=== PATIENT | male | born 1945 | race Two or more races ===

== ENCOUNTER 2024-05-13 08:27 | Inpatient (IN) | payer MEDICARE ==
[2024-05-13] VITALS (7 sets, daily range): PULSE 71–108; RESP 15–24; O2SAT 96–99
[~2024-05-13] VITALS: Ht 172.7 cm; Wt 100.7 kg
[2024-05-13 08:52] LABS: HEMATOCRIT. 45.6 % (42.0-52.0); HEMOGLOBIN. 14.5 g/dL (14.0-18.0); MEAN CORPUSCULAR HEMOGLOBIN 28.7 pg (28.0-32.0); MEAN CORPUSCULAR HGB CONC 31.7 g/dL (31.0-37.0); MEAN CORPUSCULAR VOLUME 90.5 fL (80.0-94.0); MEAN PLATELET VOLUME 7.4 fl (7.4-10.4); PLATELET 274 x1000/uL (130-400); RED BLOOD CELL COUNT 5.04 mill/uL (4.7-6.1); WHITE BLOOD COUNT 13.1 x1000/uL (4.5-11.0)
[2024-05-13 08:56] LABS: DIFFERENTIAL COMMENT 1
[2024-05-13] MEDS: ETOMIDATE 2MG/ML 10ML VIAL IV ONE (09:04)
[2024-05-13] MEDS: SUCCINYLCHOLINE CHLORIDE 200MG/10ML IV ONE (09:04)
[2024-05-13 09:06] LABS: CALCIUM 9.2 mg/dL (8.7-10.4)
[2024-05-13 09:11] LABS: CREATININE 1.3 mg/dL (0.6-1.3)
[2024-05-13] MEDS ORDERED: ACETAMINOPHEN 650MG/20.3ML UDC NG PRN (09:15)
[2024-05-13] MEDS ORDERED: ACETAMINOPHEN 650MG SUPP PR PRN (09:15)
[2024-05-13] MEDS: PROPOFOL 10MG/ML 100ML 100 ML IV ONE (09:17)
[2024-05-13 09:22] LABS: CLARITY URINE CLOUDY (CLEAR); COLOR URINE YELLOW (YELLOW); GLUCOSE URINE 1+ (NEGATIVE); KETONES URINE NEGATIVE (NEGATIVE); LEUKOCYTE ESTERASE URINE NEGATIVE (NEGATIVE); NITRITE URINE NEGATIVE (NEGATIVE); OCCULT BLOOD URINE 2+ (NEGATIVE); PH URINE 5.5 (4.5-8.0); PROTEIN URINE 3+ (NEGATIVE); SPECIFIC GRAVITY URINE 1.013 (1.005-1.030); UROBILINOGEN URINE 0.2 E.U./dL (0.2-1.0)
[2024-05-13 09:41] LABS: BACTERIA URINE TRACE; RBC URINE 15-25 /hpf (0-2); SQUAMOUS EPITHELIAL CELL URINE RARE /lpf (RARE/1+)
[2024-05-13 09:42] LABS: COARSE GRANULAR CASTS URINE 0-5 /lpf; YEAST URINE NONE SEEN
[2024-05-13 09:45] LABS: CHLORIDE 109 mEq/L (98-107); POTASSIUM 4.3 mEq/L (3.5-5.1); SODIUM 140 mEq/L (136-145)
[2024-05-13 09:46] LABS: CARBON DIOXIDE 18 mEq/L (21-32)
[2024-05-13 09:47] LABS: CALCIUM 8.7 mg/dL (8.7-10.4)
[2024-05-13] MEDS: SODIUM CHLORIDE 0.9% (SEPSIS BOLUS) IV ONE (09:55)
[2024-05-13 09:59] LABS: GLUCOSE 245 mg/dL (70-105); PHOSPHORUS 5.4 mg/dL (2.5-4.9); TROPONIN I HIGH SENSITIVITY 44 ng/L (3.0-53); UREA NITROGEN BLOOD 17 mg/dL (9-23)
[2024-05-13] MEDS: NOREPINEPHRINE 8MG/250ML PMX 250 ML IV STA ×2 (10:06→21:40)
[2024-05-13] MEDS: ATROPINE SULFATE 1MG/10ML SYR IV ONE (10:07)
[2024-05-13] MEDS ORDERED: MIDAZOLAM HCL 100 MG in DEXT 5% WATER 80 ML IV ONE (10:45)
[2024-05-13] MEDS ORDERED: PIPERACILLIN/TAZOBACTAM 3.375 G in DEXTROSE 5% WATER 50 ML IV SCH (11:15)
[2024-05-13] MEDS ORDERED: MAGNESIUM/ALUMINUM HYDROXIDE/SIMETHICONE 30ML UDC PO PRN (11:15)
[2024-05-13] MEDS ORDERED: DOCUSATE SODIUM 100MG CAPSULE PO PRN (11:15)
[2024-05-13] MEDS ORDERED: GUAIFENESIN 200MG/10ML SUGAR FREE UDC PO PRN (11:15)
[2024-05-13 11:18] LABS: BG BASE EXCESS -11.2 mmol/L (-2.0-3.0); BG CARBOXYHEMOGLOBIN 0.9 % (0.5-1.5); BG DEOXYHEMOGLOBIN 1.1 % (0.0-5.0); BG FRACTION INSPIRED OXYGEN 100; BG HCO3 ACT 15.8 mmol/L (21.0-28.0); BG METHEMOGLOBIN 0.3 % (0.5-1.5); BG OXYGEN SATURATION 98.9 % (94.0-98.0); BG OXYHEMOGLOBIN 97.7 % (94.0-98.0); BG PCO2 39.4 mmHg (35.0-48.0); BG PH 7.222 (7.350-7.450); BG PO2 189.7 mmHg (83.0-108.0); BG SAMPLE SITE RIGHT RADIAL; BG TOTAL HEMOGLOBIN 14.9 g/dL (13.5-17.5); BG VENT MODE VENT - AC
[2024-05-13] MEDS: MIDAZOLAM 100MG/100ML PREMIX IV PRN (11:18)
[2024-05-13] MEDS ORDERED: DEXTROSE 50% WATER 50ML SYRINGE IV PRN (11:45)
[2024-05-13 11:51] LABS: BETA HYDROXYBUTYRATE 0.2 mMol/L (0.0-0.3); LACTIC ACID 3.3 mmol/L (0.4-2.0)
[2024-05-13] MEDS: SODIUM BICARBONATE 8.4% 50MEQ/50ML SYR IV NR ×2 (11:56→14:00)
[2024-05-13] MEDS: VANCOMYCIN 1.5GM/250ML IV NR (12:00)
[2024-05-13] MEDS: IPRATROPIUM/ALBUTEROL 0.5-3(2.5)MG/3ML NEB HHN SCH (12:00)
[2024-05-13] MEDS: DEXT 5%/0.9% NACL 1,000 ML IV SCH (12:16)
[2024-05-13] MEDS: PANTOPRAZOLE SODIUM 40 MG/VIAL IV SCH (12:16)
[2024-05-13 12:22] LABS: *AMPHETAMINES SCREEN URINE NEGATIVE (NEGATIVE); *BARBITURATES SCREEN URINE NEGATIVE (NEGATIVE); *BENZODIAZEPINES SCREEN URINE NEGATIVE (NEGATIVE); *COCAINE SCREEN URINE NEGATIVE (NEGATIVE); CANNABINOID URINE SCREEN NEGATIVE (NEGATIVE); ECSTASY MDMA SCREEN URINE NEGATIVE (NEGATIVE); METHADONE URINE SCREEN NEGATIVE (NEGATIVE); OPIATES URINE SCREEN NEGATIVE (NEGATIVE); PHENCYCLIDINE URINE SCREEN NEGATIVE (NEGATIVE)
[2024-05-13] MEDS: PROPOFOL 10MG/ML 100ML 100 ML IV SCH ×2 (12:22→12:44)
[2024-05-13 12:29] LABS: HEMATOCRIT. 44.7 % (42.0-52.0); HEMOGLOBIN. 14.7 g/dL (14.0-18.0); MEAN CORPUSCULAR HEMOGLOBIN 29.4 pg (28.0-32.0); MEAN CORPUSCULAR HGB CONC 32.9 g/dL (31.0-37.0); MEAN CORPUSCULAR VOLUME 89.2 fL (80.0-94.0); MEAN PLATELET VOLUME 7.1 fl (7.4-10.4); PLATELET 288 x1000/uL (130-400); RED BLOOD CELL COUNT 5.01 mill/uL (4.7-6.1); RED CELL DISTRIBUTION WIDTH 13.8 % (11.6-14.6); WHITE BLOOD COUNT 19.7 x1000/uL (4.5-11.0)
[2024-05-13 12:31] LABS: DIFFERENTIAL COMMENT 1
[2024-05-13 12:42] LABS: CALCIUM 8.9 mg/dL (8.7-10.4); CARBON DIOXIDE 23 mEq/L (21-32); CHLORIDE 108 mEq/L (98-107)
[2024-05-13 12:43] LABS: SODIUM 139 mEq/L (136-145)
[2024-05-13 12:47] LABS: AMMONIA < 17 uMol/L (<32); CREATININE 1.2 mg/dL (0.6-1.3); GLUCOSE 183 mg/dL (70-105)
[2024-05-13 12:48] LABS: LDL CHOLESTEROL 82 mg/dL (5-100); TRIGLYCERIDE 288 mg/dL (0-150); UREA NITROGEN BLOOD 17 mg/dL (9-23)
[2024-05-13] MEDS: ENOXAPARIN 30MG/0.3ML SYR SUBCUT SCH (12:48)
[2024-05-13 12:49] LABS: ALANINE AMINOTRANSFERASE 118 IU/L (10-49); ALBUMIN 4.1 g/dL (3.2-4.8); ASPARTATE AMINOTRANSFERASE 128 IU/L (<34); BILIRUBIN DIRECT 0.2 mg/dL (<=3.0); CHOLESTEROL 163 mg/dL (<200); HDL CHOLESTEROL 42 mg/dL (>55)
[2024-05-13 12:50] LABS: BILIRUBIN TOTAL 0.6 mg/dL (0.1-1.0); PROTEIN TOTAL 6.6 g/dL (6.0-8.3)
[2024-05-13 12:52] LABS: T4 FREE 1.19 ng/dL (0.89-1.76)
[2024-05-13 12:59] LABS: POTASSIUM 6.3 mEq/L (3.5-5.1)
[2024-05-13] MEDS: BLOOD SUGAR DIAGNOSTIC STRIP TEST SCH (13:10)
[2024-05-13] MEDS: ASPIRIN 81MG EC TABLET PO SCH (13:15)
[2024-05-13 13:28] LABS: PARTIAL THROMBOPLASTIN TIME 26.1 sec (23.4-31.0)
[2024-05-13 13:42] LABS: OSMOLALITY URINE 459 mOsm/kg (500-850)
[2024-05-13] MEDS: CALCIUM CHLORIDE 1GM/10ML SYR IV NR (13:46)
[2024-05-13] MEDS: INSULIN REGULAR (HUMULIN R) 1000UNITS/10ML VIAL IV NR (13:59)
[2024-05-13] MEDS: DEXTROSE 50% WATER 50ML SYRINGE IV NR (14:00)
[2024-05-13] MEDS: INSULIN LISPRO 100 UNITS/ML SUBCUT SCH (14:01)
[2024-05-13] MEDS: SODIUM POLYSTYRENE SULFONATE 15 G/60 ML BOT PO NR (14:03)
[2024-05-13] MEDS: ALBUTEROL (0.083%) 2.5MG/3ML NEB HHN NR (14:04)
[2024-05-13] MEDS: PIPERACILLIN/TAZO 3.375G/50ML IV SCH (14:22)
[2024-05-13 15:03] LABS: PLATELET ESTIMATE NORMAL
[2024-05-13 15:28] LABS: PLATELET ESTIMATE NORMAL
[2024-05-13] MEDS ORDERED: SODIUM CHLORIDE 0.9% (SEPSIS BOLUS) IV ONE (15:45)
[2024-05-13 15:47] LABS: CREATININE 1.2 mg/dL (0.6-1.3)
[2024-05-13 17:01] LABS: CHLORIDE 110 mEq/L (98-107); POTASSIUM 4.3 mEq/L (3.5-5.1); SODIUM 142 mEq/L (136-145)
[2024-05-13 17:02] LABS: CARBON DIOXIDE 23 mEq/L (21-32)
[2024-05-13 17:03] LABS: CALCIUM 9.5 mg/dL (8.7-10.4)
[2024-05-13 17:07] LABS: GLUCOSE 182 mg/dL (70-105); UREA NITROGEN BLOOD 16 mg/dL (9-23)
[2024-05-13 17:09] LABS: CREATINE KINASE 712 IU/L (46-171)
[2024-05-13 17:11] LABS: TROPONIN I HIGH SENSITIVITY 4273 ng/L (3.0-53)
[2024-05-13 17:21] LABS: BG BASE EXCESS -3.3 mmol/L (-2.0-3.0); BG CARBOXYHEMOGLOBIN 1.2 % (0.5-1.5); BG DEOXYHEMOGLOBIN 1.3 % (0.0-5.0); BG FRACTION INSPIRED OXYGEN 100; BG HCO3 ACT 21.7 mmol/L (21.0-28.0); BG METHEMOGLOBIN 0.3 % (0.5-1.5); BG OXYGEN SATURATION 98.7 % (94.0-98.0); BG OXYHEMOGLOBIN 97.2 % (94.0-98.0); BG PCO2 38.9 mmHg (35.0-48.0); BG PH 7.365 (7.350-7.450); BG PO2 149.2 mmHg (83.0-108.0); BG SAMPLE SITE RIGHT RADIAL; BG TOTAL HEMOGLOBIN 13.8 g/dL (13.5-17.5); BG VENT MODE VENT - AC
[2024-05-13] MEDS ORDERED: HEPARIN 100 UNITS/1 ML VIAL IVF PRN (17:45)
[2024-05-13] MEDS: HEPARIN 60 UNITS/KG BOLUS IV SCH (18:34)
[2024-05-13] MEDS: HEPARIN 25,000 UNITS PREMIX 250 ML IV SCH (18:37)
[2024-05-13] MEDS ORDERED: NOREPINEPHRINE 8MG/250ML PMX 250 ML IV PRN (22:00)
[2024-05-13 23:29] LABS: CREATINE KINASE 609 IU/L (46-171)
[2024-05-14] VITALS (68 sets, daily range): BP systolic 86–156; BP diastolic 45–100; PULSE 65–82; RESP 16–36; TEMP 36.89184–37.55856; O2SAT 90–100
[2024-05-14] MEDS: ACETAMINOPHEN 650MG/20.3ML UDC GT PRN (00:12)
[2024-05-14 00:32] LABS: TROPONIN I HIGH SENSITIVITY 4807 ng/L (3.0-53)
[2024-05-14 00:34] LABS: BG BASE EXCESS -3.8 mmol/L (-2.0-3.0); BG CARBOXYHEMOGLOBIN 0.9 % (0.5-1.5); BG DEOXYHEMOGLOBIN 3.6 % (0.0-5.0); BG FRACTION INSPIRED OXYGEN 70; BG HCO3 ACT 20.2 mmol/L (21.0-28.0); BG METHEMOGLOBIN 0.3 % (0.5-1.5); BG OXYGEN SATURATION 96.4 % (94.0-98.0); BG OXYHEMOGLOBIN 95.2 % (94.0-98.0); BG PCO2 33.9 mmHg (35.0-48.0); BG PH 7.394 (7.350-7.450); BG PO2 86.8 mmHg (83.0-108.0); BG SAMPLE SITE LEFT RADIAL; BG VENT MODE VENT - AC
[2024-05-14] MEDS: VANCOMYCIN 500MG PREMIX 100 ML IV SCH (01:55)
[2024-05-14] MEDS: ATORVASTATIN CALCIUM 40MG TABLET PO SCH (02:23)
[2024-05-14] MEDS ORDERED: HEPARIN BOLUS PRN aPTT 30-44 IV (03:00)
[2024-05-14] MEDS ORDERED: VANCOMYCIN 1GM PMX (XELLIA) 200 ML IV SCH (06:00)
[2024-05-14 06:29] LABS: PROTHROMBIN TIME 11.6 sec (9.6-11.0)
[2024-05-14 10:29] LABS: HEMATOCRIT. 40.6 % (42.0-52.0); HEMOGLOBIN. 13.1 g/dL (14.0-18.0); MEAN CORPUSCULAR HEMOGLOBIN 28.8 pg (28.0-32.0); MEAN CORPUSCULAR HGB CONC 32.2 g/dL (31.0-37.0); MEAN CORPUSCULAR VOLUME 89.6 fL (80.0-94.0); MEAN PLATELET VOLUME 7.5 fl (7.4-10.4); PLATELET 221 x1000/uL (130-400); RED BLOOD CELL COUNT 4.53 mill/uL (4.7-6.1); WHITE BLOOD COUNT 15.1 x1000/uL (4.5-11.0)
[2024-05-14 10:34] LABS: DIFFERENTIAL COMMENT 1
[2024-05-14 10:54] LABS: CHLORIDE 111 mEq/L (98-107); POTASSIUM 3.8 mEq/L (3.5-5.1); SODIUM 142 mEq/L (136-145)
[2024-05-14 10:55] LABS: CALCIUM 8.6 mg/dL (8.7-10.4); CARBON DIOXIDE 21 mEq/L (21-32)
[2024-05-14 11:00] LABS: CREATININE 0.9 mg/dL (0.6-1.3); GLUCOSE 198 mg/dL (70-105); UREA NITROGEN BLOOD 8 mg/dL (9-23)
[2024-05-14 11:02] LABS: ALANINE AMINOTRANSFERASE 75 IU/L (10-49); ALBUMIN 3.6 g/dL (3.2-4.8); ASPARTATE AMINOTRANSFERASE 66 IU/L (<34); BILIRUBIN TOTAL 0.4 mg/dL (0.1-1.0)
[2024-05-14 11:03] LABS: PROTEIN TOTAL 5.8 g/dL (6.0-8.3)
[2024-05-14 14:14] LABS: PLATELET ESTIMATE NORMAL
[2024-05-14] MEDS: PROPOFOL 10MG/ML 100ML 100 ML IV PRN (14:21)
[2024-05-14] MEDS: VANCOMYCIN 1.25GM PMX (XELLIA) 250 ML IV SCH (17:49)
[2024-05-14] MEDS: HEPARIN BOLUS PRN aPTT <30 IV (17:49)
[2024-05-14] MEDS: MIDAZOLAM 100MG/100ML PREMIX IV PRN (23:35)
[2024-05-15] VITALS (90 sets, daily range): BP systolic 98–150; BP diastolic 45–95; PULSE 70–88; RESP 12–37; TEMP 37.16964–38.6142; O2SAT 96–100
[2024-05-15] MEDS: ACETAMINOPHEN 325MG TABLET PO PRN (02:54)
[2024-05-15 06:00] LABS: BASOPHILS % 0.2 % (0.0-2.0); EOSINOPHILS % 0.1 % (0.0-5.0); HEMATOCRIT. 34.4 % (42.0-52.0); HEMOGLOBIN. 11.4 g/dL (14.0-18.0); LYMPHOCYTES % 8.8 % (20.0-50.0); MEAN CORPUSCULAR HEMOGLOBIN 29.8 pg (28.0-32.0); MEAN CORPUSCULAR HGB CONC 33.2 g/dL (31.0-37.0); MEAN CORPUSCULAR VOLUME 89.7 fL (80.0-94.0); MEAN PLATELET VOLUME 7.7 fl (7.4-10.4); MONOCYTES % 10.9 % (2.0-8.0); PLATELET 180 x1000/uL (130-400); RED BLOOD CELL COUNT 3.84 mill/uL (4.7-6.1); RED CELL DISTRIBUTION WIDTH 14.2 % (11.6-14.6); WHITE BLOOD COUNT 12.3 x1000/uL (4.5-11.0)
[2024-05-15 06:10] LABS: CARBON DIOXIDE 24 mEq/L (21-32); CHLORIDE 112 mEq/L (98-107); POTASSIUM 3.8 mEq/L (3.5-5.1); SODIUM 143 mEq/L (136-145)
[2024-05-15 06:11] LABS: CALCIUM 8.4 mg/dL (8.7-10.4)
[2024-05-15 06:15] LABS: CREATININE 0.9 mg/dL (0.6-1.3); GLUCOSE 158 mg/dL (70-105); TRIGLYCERIDE 188 mg/dL (0-150)
[2024-05-15 06:16] LABS: UREA NITROGEN BLOOD 7 mg/dL (9-23)
[2024-05-15] MEDS ORDERED: VERAPAMIL HCL 2.5 MG/1 ML 2ML VIAL IV ONE (08:40)
[2024-05-15] MEDS ORDERED: IODIXANOL 320MG/ML 100 ML BOTTLE IV ONE (08:40)
[2024-05-15] MEDS ORDERED: HEPARIN 1000 UNITS/ML 10ML ONE (08:40)
[2024-05-15] MEDS ORDERED: LIDOCAINE HCL 1% 10 MG/ML 10ML VIAL ONE (08:47)
[2024-05-15] MEDS ORDERED: NOREPINEPHRINE 8MG/250ML PMX 250 ML IV ONE (09:37)
[2024-05-15] MEDS ORDERED: ATROPINE SULFATE 1MG/10ML SYR IV PRN (10:00)
[2024-05-15] MEDS ORDERED: ACETAMINOPHEN 325MG TABLET PO PRN (10:00)
[2024-05-15 12:07] LABS: BG BASE EXCESS -3.5 mmol/L (-2.0-3.0); BG CARBOXYHEMOGLOBIN 0.6 % (0.5-1.5); BG DEOXYHEMOGLOBIN 5.8 % (0.0-5.0); BG FRACTION INSPIRED OXYGEN 100; BG HCO3 ACT 19.9 mmol/L (21.0-28.0); BG METHEMOGLOBIN 0.3 % (0.5-1.5); BG OXYGEN SATURATION 94.1 % (94.0-98.0); BG OXYHEMOGLOBIN 93.3 % (94.0-98.0); BG PH 7.426 (7.350-7.450); BG PO2 66.9 mmHg (83.0-108.0); BG SAMPLE SITE LEFT RADIAL; BG TOTAL HEMOGLOBIN 11.8 g/dL (13.5-17.5); BG VENT MODE VENT - AC
[2024-05-15] MEDS: FUROSEMIDE 40MG/4ML VIAL IVP NR (14:09)
[2024-05-15] MEDS: EPOETIN ALFA 10000UNITS/ML VIAL SUBCUT SCH (15:17)
[2024-05-15] MEDS: VANCOMYCIN 1.25GM PMX (XELLIA) 250 ML IV SCH (15:18)
[2024-05-15 20:21] LABS: BG CARBOXYHEMOGLOBIN 0.6 % (0.5-1.5); BG DEOXYHEMOGLOBIN 2.5 % (0.0-5.0); BG FRACTION INSPIRED OXYGEN 100; BG HCO3 ACT 22.5 mmol/L (21.0-28.0); BG METHEMOGLOBIN 0.3 % (0.5-1.5); BG OXYGEN SATURATION 97.5 % (94.0-98.0); BG OXYHEMOGLOBIN 96.6 % (94.0-98.0); BG PCO2 30.1 mmHg (35.0-48.0); BG PH 7.491 (7.350-7.450); BG PO2 91.4 mmHg (83.0-108.0); BG SAMPLE SITE RIGHT RADIAL; BG TOTAL HEMOGLOBIN 12.9 g/dL (13.5-17.5); BG VENT MODE VENT - AC
[2024-05-15] MEDS ORDERED: BISACODYL 10MG SUPP PR PRN (21:00)
[2024-05-15] MEDS: CHLORHEXIDINE GLUCONATE 4% EXTERNAL USE TOP SCH (21:22)
[2024-05-15] MEDS: ASCORBIC ACID 500 MG TABLET PO SCH (21:32)
[2024-05-15] MEDS: ALLOPURINOL 300 MG TABLET PO SCH (21:32)
[2024-05-15] MEDS: DOCUSATE SODIUM 100MG CAPSULE PO SCH (21:32)
[2024-05-15] MEDS: PROPOFOL 10MG/ML 100ML 100 ML IV PRN (21:34)
[2024-05-15 22:11] LABS: PHOSPHORUS 2.5 mg/dL (2.5-4.9)
[2024-05-15 22:33] LABS: BG BASE EXCESS 0.4 mmol/L (-2.0-3.0); BG CARBOXYHEMOGLOBIN 0.2 % (0.5-1.5); BG DEOXYHEMOGLOBIN 2.1 % (0.0-5.0); BG FRACTION INSPIRED OXYGEN 90; BG HCO3 ACT 23.6 mmol/L (21.0-28.0); BG METHEMOGLOBIN 0.3 % (0.5-1.5); BG OXYGEN SATURATION 97.9 % (94.0-98.0); BG OXYHEMOGLOBIN 97.4 % (94.0-98.0); BG PCO2 33.3 mmHg (35.0-48.0); BG PH 7.468 (7.350-7.450); BG SAMPLE SITE RIGHT RADIAL; BG TOTAL HEMOGLOBIN 12.6 g/dL (13.5-17.5); BG VENT MODE VENT - AC
[2024-05-16] VITALS (82 sets, daily range): BP systolic 95–146; BP diastolic 53–97; PULSE 65–109; RESP 17–44; TEMP 36.83628–37.2252; O2SAT 90–100
[2024-05-16 00:54] LABS: BG CARBOXYHEMOGLOBIN 0.2 % (0.5-1.5); BG DEOXYHEMOGLOBIN 2.2 % (0.0-5.0); BG FRACTION INSPIRED OXYGEN 70; BG METHEMOGLOBIN 0.3 % (0.5-1.5); BG OXYGEN SATURATION 97.8 % (94.0-98.0); BG OXYHEMOGLOBIN 97.3 % (94.0-98.0); BG PCO2 31.7 mmHg (35.0-48.0); BG PO2 104.4 mmHg (83.0-108.0); BG SAMPLE SITE RIGHT RADIAL; BG TOTAL HEMOGLOBIN 12.4 g/dL (13.5-17.5); BG VENT MODE VENT - AC
[2024-05-16] MEDS: MIDAZOLAM 100MG/100ML PMX 100 ML IV PRN (02:49)
[2024-05-16] MEDS: CEFAZOLIN 2GM/100ML 100 ML IV NR (04:22)
[2024-05-16 04:46] LABS: BASOPHILS % 0.4 % (0.0-2.0); CALCIUM 8.4 mg/dL (8.7-10.4); CARBON DIOXIDE 25 mEq/L (21-32); CHLORIDE 109 mEq/L (98-107); EOSINOPHILS % 0.1 % (0.0-5.0); HEMATOCRIT. 35.4 % (42.0-52.0); HEMOGLOBIN. 11.7 g/dL (14.0-18.0); LYMPHOCYTES % 12.2 % (20.0-50.0); MEAN CORPUSCULAR HEMOGLOBIN 29.2 pg (28.0-32.0); MEAN CORPUSCULAR HGB CONC 33.1 g/dL (31.0-37.0); MEAN CORPUSCULAR VOLUME 88.4 fL (80.0-94.0); MEAN PLATELET VOLUME 7.2 fl (7.4-10.4); MONOCYTES % 12.8 % (2.0-8.0); NEUTROPHILS % 74.5 % (40.0-76.0); PLATELET 186 x1000/uL (130-400); POTASSIUM 3.3 mEq/L (3.5-5.1); RED BLOOD CELL COUNT 4.01 mill/uL (4.7-6.1); RED CELL DISTRIBUTION WIDTH 13.7 % (11.6-14.6); SODIUM 141 mEq/L (136-145); WHITE BLOOD COUNT 12.6 x1000/uL (4.5-11.0)
[2024-05-16 04:52] LABS: CREATININE 0.9 mg/dL (0.6-1.3); GLUCOSE 148 mg/dL (70-105); TRIGLYCERIDE 180 mg/dL (0-150); UREA NITROGEN BLOOD 10 mg/dL (9-23)
[2024-05-16] MEDS ORDERED: NICARDIPINE 40MG/200ML PREMIX 200 ML IV PRN (05:00)
[2024-05-16] MEDS ORDERED: WATER IV NR (05:00)
[2024-05-16] MEDS ORDERED: AMINOCAPROIC ACID IV NR (05:00)
[2024-05-16] MEDS ORDERED: DOBUTAMINE 250 MG/250 ML PREMIX IV PRN (05:00)
[2024-05-16] MEDS ORDERED: DEXT 5% IV NR (05:00)
[2024-05-16] MEDS ORDERED: NOREPINEPHRINE 8MG/250ML PMX 250 ML IV PRN (05:00)
[2024-05-16] MEDS ORDERED: PAPAVERINE HCL 180MG in SODIUM CHLORIDE 0.9% 24ML IV NR (05:00)
[2024-05-16] MEDS: CHLORHEXIDINE GLUCONATE 4% EXTERNAL USE TOP SCH (05:09)
[2024-05-16] MEDS: KCL 20MEQ/100ML PREMIX 100 ML IV SCH (05:31)
[2024-05-16 05:36] LABS: PROTHROMBIN TIME 11.1 sec (9.6-11.0)
[2024-05-16 05:38] LABS: PHOSPHORUS 2.8 mg/dL (2.5-4.9)
[2024-05-16] MEDS ORDERED: NITROGLYCERIN 50MG PREMIX 250 ML IV ONE (06:07)
[2024-05-16] MEDS ORDERED: SEVOFLURANE 250 ML LIQUID INH ONE (06:07)
[2024-05-16] MEDS ORDERED: HEPARIN 1000 UNITS/ML 10ML ONE ×2 (06:07→08:36)
[2024-05-16] MEDS ORDERED: ROCURONIUM BROMIDE 10MG/ML VIAL 5ML IV ONE ×2 (06:47→08:10)
[2024-05-16] MEDS ORDERED: POLYMYXIN B SULFATE 500000 UNITS/VIAL ONE (06:48)
[2024-05-16] MEDS ORDERED: SKIN ADHESIVE 0.7 GM EA TOP ONE (06:48)
[2024-05-16] MEDS ORDERED: THROMBIN (BOVINE) 5000 UNITS/VIAL TOP ONE (06:48)
[2024-05-16] MEDS ORDERED: ACETAMINOPHEN 1000MG/100ML 100 ML IV ONE (06:49)
[2024-05-16] MEDS ORDERED: MAGNESIUM 4 G PREMIX 100 ML IV NR ×2 (07:00→08:00)
[2024-05-16] MEDS ORDERED: DEL NIDO CARDIOPLEGIA 1,000 ML (PREMIX) IV NR (07:00)
[2024-05-16] MEDS ORDERED: AMINOCAPROIC ACID 250 MG/ML 20ML VIAL ONE (08:07)
[2024-05-16] MEDS ORDERED: FENTANYL CITRATE/PF 50MCG/ML 2ML VIAL ONE ×2 (08:08)
[2024-05-16] MEDS ORDERED: PROPOFOL 10MG/ML 100ML 100 ML IV ONE (08:29)
[2024-05-16] MEDS ORDERED: CALCIUM CHLORIDE 1GM/10ML SYR IV ONE (09:43)
[2024-05-16] MEDS ORDERED: SODIUM BICARBONATE 8.4% 50MEQ/50ML SYR IV ONE ×2 (09:58→10:28)
[2024-05-16] MEDS ORDERED: PROTAMINE SULFATE 10MG/ML VIAL 25ML IV ONE (10:13)
[2024-05-16] MEDS ORDERED: AMIODARONE HCL 50MG/ML 3ML VIAL IV ONE (10:13)
[2024-05-16] MEDS ORDERED: NEOSTIGMINE METHYLSULFATE 1MG/ML 10 ML VIAL ONE (10:25)
[2024-05-16] MEDS ORDERED: GLYCOPYRROLATE 0.2 MG/ML 2ML VIAL ONE (10:26)
[2024-05-16] MEDS ORDERED: DEXMEDETOMIDINE 400 MCG/100 ML 100 ML IV ONE (10:36)
[2024-05-16] MEDS ORDERED: SODIUM CHLORIDE 0.9% 500 ML IV PRN (11:00)
[2024-05-16] MEDS ORDERED: CALCIUM CHLORIDE 3,000 MG in DEXT 5% WATER 250 ML IV PRN (11:00)
[2024-05-16] MEDS ORDERED: ALBUMIN HUMAN 12.5G/250ML (5%) IV PRN (11:00)
[2024-05-16] MEDS ORDERED: EPINEPHRINE 5 MG in DEXT 5% WATER 245 ML IV PRN (11:00)
[2024-05-16] MEDS ORDERED: CALCIUM CHLORIDE 5,000 MG in DEXT 5% WATER 500 ML IV PRN (11:00)
[2024-05-16] MEDS: ASPIRIN 81MG EC TABLET PO NR (11:00)
[2024-05-16] MEDS ORDERED: DOPAMINE 400MG/250ML PREMIX 250 ML IV PRN (11:00)
[2024-05-16] MEDS ORDERED: ALBUMIN HUMAN 25GM/100ML (25%) IV PRN (11:00)
[2024-05-16 11:53] LABS: BASOPHILS % 0.2 % (0.0-2.0); EOSINOPHILS % 0.1 % (0.0-5.0); HEMATOCRIT. 37.8 % (42.0-52.0); HEMOGLOBIN. 12.1 g/dL (14.0-18.0); LYMPHOCYTES % 8.2 % (20.0-50.0); MEAN CORPUSCULAR HEMOGLOBIN 28.6 pg (28.0-32.0); MEAN CORPUSCULAR HGB CONC 32.1 g/dL (31.0-37.0); MEAN CORPUSCULAR VOLUME 89.1 fL (80.0-94.0); MEAN PLATELET VOLUME 7.1 fl (7.4-10.4); MONOCYTES % 8.8 % (2.0-8.0); NEUTROPHILS % 82.7 % (40.0-76.0); PLATELET 196 x1000/uL (130-400); RED BLOOD CELL COUNT 4.25 mill/uL (4.7-6.1); RED CELL DISTRIBUTION WIDTH 13.8 % (11.6-14.6); WHITE BLOOD COUNT 22.7 x1000/uL (4.5-11.0)
[2024-05-16 11:58] LABS: BG BASE EXCESS -5.5 mmol/L (-2.0-3.0); BG CARBOXYHEMOGLOBIN 1.3 % (0.5-1.5); BG DEOXYHEMOGLOBIN 14.2 % (0.0-5.0); BG FRACTION INSPIRED OXYGEN 100; BG HCO3 ACT 18.5 mmol/L (21.0-28.0); BG METHEMOGLOBIN 0.3 % (0.5-1.5); BG OXYGEN SATURATION 85.6 % (94.0-98.0); BG OXYHEMOGLOBIN 84.2 % (94.0-98.0); BG PCO2 31.6 mmHg (35.0-48.0); BG PH 7.386 (7.350-7.450); BG PO2 49.6 mmHg (83.0-108.0); BG SAMPLE SITE ALINE; BG TOTAL HEMOGLOBIN 12.7 g/dL (13.5-17.5); BG TOTAL RESPIRATORY RATE 43 b/min; BG VENT MODE VENT - AC
[2024-05-16 12:21] LABS: CHLORIDE 107 mEq/L (98-107); POTASSIUM 3.3 mEq/L (3.5-5.1); SODIUM 141 mEq/L (136-145)
[2024-05-16 12:22] LABS: CALCIUM 8.6 mg/dL (8.7-10.4); CARBON DIOXIDE 20 mEq/L (21-32)
[2024-05-16 12:27] LABS: GLUCOSE 271 mg/dL (70-105); UREA NITROGEN BLOOD 12 mg/dL (9-23)
[2024-05-16] MEDS: IPRATROPIUM/ALBUTEROL 0.5-3(2.5)MG/3ML NEB HHN SCH (12:34)
[2024-05-16] MEDS: INSULIN REGULAR 100 U/100 ML PREMIX IV PRN (12:41)
[2024-05-16] MEDS: DOPAMINE 400 MG PREMIX 250 ML IV PRN (12:42)
[2024-05-16] MEDS: EPINEPHRINE 5 MG in DEXT 5% WATER 250 ML IV PRN (12:42)
[2024-05-16] MEDS: DEXT 5%/0.45% NACL 1000ML 1,000 ML IV SCH (12:45)
[2024-05-16] MEDS: KCL 10MEQ/50ML PREMIX 150 ML IV PRN (13:30)
[2024-05-16] MEDS: MAGNESIUM 2 G PREMIX 50 ML IV PRN (13:30)
[2024-05-16 13:35] LABS: BG BASE EXCESS -5.2 mmol/L (-2.0-3.0); BG CARBOXYHEMOGLOBIN 0.6 % (0.5-1.5); BG DEOXYHEMOGLOBIN 6.9 % (0.0-5.0); BG FRACTION INSPIRED OXYGEN 100; BG METHEMOGLOBIN 0.3 % (0.5-1.5); BG OXYHEMOGLOBIN 92.2 % (94.0-98.0); BG PCO2 37.4 mmHg (35.0-48.0); BG PH 7.345 (7.350-7.450); BG PO2 71.1 mmHg (83.0-108.0); BG SAMPLE SITE ALINE; BG TOTAL HEMOGLOBIN 12.6 g/dL (13.5-17.5); BG TOTAL RESPIRATORY RATE 26 b/min; BG VENT MODE VENT - AC
[2024-05-16] MEDS: CEFAZOLIN 1,000 MG in DEXTROSE 5% WATER 50 ML IV SCH (14:30)
[2024-05-16] MEDS: CLOPIDOGREL 75MG TABLET PO NR (14:30)
[2024-05-16] MEDS ORDERED: DEXMEDETOMIDINE 400 MCG/100 ML 100 ML IV PRN (15:15)
[2024-05-16] MEDS: DEXMEDETOMIDINE 400 MCG/100 ML 100 ML IV PRN (15:20)
[2024-05-16 16:25] LABS: BG BASE EXCESS -3.8 mmol/L (-2.0-3.0); BG CARBOXYHEMOGLOBIN 0.1 % (0.5-1.5); BG DEOXYHEMOGLOBIN 3.8 % (0.0-5.0); BG FRACTION INSPIRED OXYGEN 100; BG HCO3 ACT 20.5 mmol/L (21.0-28.0); BG METHEMOGLOBIN 0.3 % (0.5-1.5); BG OXYGEN SATURATION 96.2 % (94.0-98.0); BG OXYHEMOGLOBIN 95.8 % (94.0-98.0); BG PCO2 34.6 mmHg (35.0-48.0); BG PO2 86.5 mmHg (83.0-108.0); BG SAMPLE SITE ALINE; BG TOTAL HEMOGLOBIN 12.1 g/dL (13.5-17.5); BG TOTAL RESPIRATORY RATE 25 b/min; BG VENT MODE VENT - AC
[2024-05-16 18:53] LABS: HEMATOCRIT 35.2 % (42.0-52.0); HEMOGLOBIN 11.6 g/dL (14.0-18.0); MEAN CORPUSCULAR VOLUME 87.7 fL (80.0-94.0); PLATELET 194 x1000/uL (130-400); RED BLOOD CELL COUNT 4.01 mill/uL (4.7-6.1); RED CELL DISTRIBUTION WIDTH 13.4 % (11.6-14.6)
[2024-05-16 19:02] LABS: CARBON DIOXIDE 24 mEq/L (21-32); CHLORIDE 108 mEq/L (98-107); POTASSIUM 3.3 mEq/L (3.5-5.1); SODIUM 139 mEq/L (136-145)
[2024-05-16 19:03] LABS: CALCIUM 8.2 mg/dL (8.7-10.4)
[2024-05-16 19:07] LABS: CREATININE 0.9 mg/dL (0.6-1.3)
[2024-05-16 19:08] LABS: GLUCOSE 168 mg/dL (70-105); UREA NITROGEN BLOOD 12 mg/dL (9-23)
[2024-05-16] MEDS: BLOOD SUGAR DIAGNOSTIC STRIP TEST SCH (19:15)
[2024-05-16] MEDS: INSULIN REGULAR 100U/100ML PMX 100 ML IV SCH (19:37)
[2024-05-16] MEDS: FUROSEMIDE 40MG/4ML VIAL IVP NR (20:32)
[2024-05-16] MEDS: PROPOFOL 10MG/ML 100ML 100 ML IV PRN (20:43)
[2024-05-16] MEDS: ONDANSETRON HCL 4MG/2ML INJ IV PRN (20:44)
[2024-05-16 20:55] LABS: HEMATOCRIT 35.5 % (42.0-52.0); HEMOGLOBIN 11.5 g/dL (14.0-18.0); MEAN CORPUSCULAR HEMOGLOBIN 28.7 pg (28.0-32.0); MEAN CORPUSCULAR HGB CONC 32.3 g/dL (31.0-37.0); MEAN CORPUSCULAR VOLUME 88.8 fL (80.0-94.0); PLATELET 202 x1000/uL (130-400); RED CELL DISTRIBUTION WIDTH 13.5 % (11.6-14.6); WHITE BLOOD COUNT 16.5 x1000/uL (4.5-11.0)
[2024-05-16 20:57] LABS: CARBON DIOXIDE 25 mEq/L (21-32); CHLORIDE 109 mEq/L (98-107); POTASSIUM 3.4 mEq/L (3.5-5.1); SODIUM 141 mEq/L (136-145)
[2024-05-16 20:58] LABS: CALCIUM 8.3 mg/dL (8.7-10.4)
[2024-05-16 21:02] LABS: CREATININE 0.9 mg/dL (0.6-1.3); GLUCOSE 149 mg/dL (70-105)
[2024-05-16 21:03] LABS: UREA NITROGEN BLOOD 12 mg/dL (9-23)
[2024-05-16] MEDS: BACITRACIN 14GM TUBE TOP SCH (21:03)
[2024-05-16 21:05] LABS: PHOSPHORUS 2.5 mg/dL (2.5-4.9)
[2024-05-16] MEDS: EPINEPHRINE 5 MG in DEXT 5% WATER 245 ML IV PRN (21:58)
[2024-05-16 22:19] LABS: BG BASE EXCESS -8.8 mmol/L (-2.0-3.0); BG FRACTION INSPIRED OXYGEN 100; BG HCO3 ACT 12.3 mmol/L (21.0-28.0); BG PCO2 18.2 mmHg (35.0-48.0); BG PH 7.447 (7.350-7.450); BG PO2 156.6 mmHg (83.0-108.0); BG SAMPLE SITE ALINE; BG VENT MODE VENT - AC
[2024-05-16] MEDS: SODIUM BICARBONATE 8.4% 50MEQ/50ML SYR IV NR (23:13)
[2024-05-17] VITALS (108 sets, daily range): BP systolic 85–141; BP diastolic 48–74; PULSE 68–107; RESP 17–36; TEMP 36.89184–39.39204; O2SAT 94–100
[2024-05-17] MEDS: SODIUM BICARBONATE IV SCH (02:36)
[2024-05-17] MEDS: SODIUM CHLORIDE 0.9% IV SCH (02:36)
[2024-05-17 04:51] LABS: BG BASE EXCESS 1.5 mmol/L (-2.0-3.0); BG CARBOXYHEMOGLOBIN 0.7 % (0.5-1.5); BG FRACTION INSPIRED OXYGEN 80; BG HCO3 ACT 24.4 mmol/L (21.0-28.0); BG METHEMOGLOBIN 0.3 % (0.5-1.5); BG OXYGEN SATURATION 94.9 % (94.0-98.0); BG PCO2 32.7 mmHg (35.0-48.0); BG PH 7.491 (7.350-7.450); BG PO2 71.6 mmHg (83.0-108.0); BG SAMPLE SITE ALINE; BG TOTAL HEMOGLOBIN 11.7 g/dL (13.5-17.5); BG TOTAL RESPIRATORY RATE 24 b/min; BG VENT MODE VENT - AC
[2024-05-17 05:08] LABS: HEMATOCRIT. 34.8 % (42.0-52.0); HEMOGLOBIN. 11.4 g/dL (14.0-18.0); MEAN CORPUSCULAR HEMOGLOBIN 29.2 pg (28.0-32.0); MEAN CORPUSCULAR HGB CONC 32.9 g/dL (31.0-37.0); MEAN CORPUSCULAR VOLUME 88.6 fL (80.0-94.0); MEAN PLATELET VOLUME 7.5 fl (7.4-10.4); PLATELET 210 x1000/uL (130-400); RED BLOOD CELL COUNT 3.92 mill/uL (4.7-6.1); RED CELL DISTRIBUTION WIDTH 13.7 % (11.6-14.6); WHITE BLOOD COUNT 14.5 x1000/uL (4.5-11.0)
[2024-05-17 05:23] LABS: CHLORIDE 108 mEq/L (98-107); POTASSIUM 3.6 mEq/L (3.5-5.1); SODIUM 141 mEq/L (136-145)
[2024-05-17 05:24] LABS: CALCIUM 8.1 mg/dL (8.7-10.4); CARBON DIOXIDE 27 mEq/L (21-32)
[2024-05-17 05:29] LABS: CREATININE 0.9 mg/dL (0.6-1.3); GLUCOSE 145 mg/dL (70-105)
[2024-05-17 05:30] LABS: UREA NITROGEN BLOOD 13 mg/dL (9-23)
[2024-05-17 05:32] LABS: PHOSPHORUS 3.5 mg/dL (2.5-4.9)
[2024-05-17] MEDS: KCL 10MEQ/50ML PREMIX 100 ML IV PRN (05:49)
[2024-05-17 06:01] LABS: DIFFERENTIAL COMMENT 1
[2024-05-17] MEDS ORDERED: CALCIUM GLUCONATE 3,000 MG in DEXT 5% WATER 70 ML IV ONE (08:30)
[2024-05-17] MEDS: ASPIRIN 81MG EC TABLET PO SCH (08:53)
[2024-05-17] MEDS: CLOPIDOGREL 75MG TABLET PO SCH (08:54)
[2024-05-17] MEDS: MIDODRINE HCL 5MG TABLET PO SCH (08:58)
[2024-05-17] MEDS: ALBUMIN HUMAN 12.5G/250ML (5%) IV NR (08:59)
[2024-05-17] MEDS: DOPAMINE 400MG/250ML PREMIX 250 ML IV PRN (09:00)
[2024-05-17] MEDS: CALCIUM GLUCONATE 1 GM IV SCH (10:15)
[2024-05-17 11:06] LABS: HEMATOCRIT. 32.9 % (42.0-52.0); HEMOGLOBIN. 10.6 g/dL (14.0-18.0); MEAN CORPUSCULAR HEMOGLOBIN 28.5 pg (28.0-32.0); MEAN CORPUSCULAR HGB CONC 32.3 g/dL (31.0-37.0); MEAN CORPUSCULAR VOLUME 88.1 fL (80.0-94.0); MEAN PLATELET VOLUME 7.8 fl (7.4-10.4); PLATELET 215 x1000/uL (130-400); RED BLOOD CELL COUNT 3.73 mill/uL (4.7-6.1); RED CELL DISTRIBUTION WIDTH 13.5 % (11.6-14.6); WHITE BLOOD COUNT 14.7 x1000/uL (4.5-11.0)
[2024-05-17 11:11] LABS: DIFFERENTIAL COMMENT 1
[2024-05-17 11:12] LABS: CALCIUM 8.1 mg/dL (8.7-10.4); CARBON DIOXIDE 26 mEq/L (21-32); CHLORIDE 107 mEq/L (98-107); POTASSIUM 3.9 mEq/L (3.5-5.1); SODIUM 140 mEq/L (136-145)
[2024-05-17 11:17] LABS: GLUCOSE 118 mg/dL (70-105)
[2024-05-17 11:18] LABS: UREA NITROGEN BLOOD 14 mg/dL (9-23)
[2024-05-17 11:20] LABS: PHOSPHORUS 2.8 mg/dL (2.5-4.9)
[2024-05-17] MEDS: ALBUMIN HUMAN 25GM/100ML (25%) IV SCH (11:30)
[2024-05-17] MEDS: BUMETANIDE 2.5MG/10ML VIAL IV NR ×2 (11:58→21:04)
[2024-05-17 12:47] LABS: BG BASE EXCESS 1.7 mmol/L (-2.0-3.0); BG CARBOXYHEMOGLOBIN 0.5 % (0.5-1.5); BG DEOXYHEMOGLOBIN 4.3 % (0.0-5.0); BG FRACTION INSPIRED OXYGEN 80; BG HCO3 ACT 24.2 mmol/L (21.0-28.0); BG METHEMOGLOBIN 0.3 % (0.5-1.5); BG OXYGEN SATURATION 95.7 % (94.0-98.0); BG OXYHEMOGLOBIN 94.9 % (94.0-98.0); BG PCO2 30.9 mmHg (35.0-48.0); BG PH 7.511 (7.350-7.450); BG PO2 75.3 mmHg (83.0-108.0); BG SAMPLE SITE ALINE; BG TOTAL HEMOGLOBIN 11.3 g/dL (13.5-17.5); BG VENT MODE VENT - AC
[2024-05-17 15:16] LABS: PLATELET ESTIMATE NORMAL
[2024-05-17 16:05] LABS: PLATELET ESTIMATE NORMAL
[2024-05-17] MEDS ORDERED: NON FORMULARY MED XX SCH (17:30)
[2024-05-17 17:43] LABS: HEMATOCRIT. 29.7 % (42.0-52.0); MEAN CORPUSCULAR HEMOGLOBIN 29.6 pg (28.0-32.0); MEAN CORPUSCULAR HGB CONC 33.8 g/dL (31.0-37.0); MEAN CORPUSCULAR VOLUME 87.7 fL (80.0-94.0); PLATELET 167 x1000/uL (130-400); RED BLOOD CELL COUNT 3.39 mill/uL (4.7-6.1); RED CELL DISTRIBUTION WIDTH 13.4 % (11.6-14.6); WHITE BLOOD COUNT 13.1 x1000/uL (4.5-11.0)
[2024-05-17 17:45] LABS: DIFFERENTIAL COMMENT 1
[2024-05-17 17:50] LABS: CHLORIDE 117 mEq/L (98-107); SODIUM 146 mEq/L (136-145)
[2024-05-17 17:51] LABS: CALCIUM 6.1 mg/dL (8.7-10.4); CARBON DIOXIDE 21 mEq/L (21-32)
[2024-05-17 17:56] LABS: CREATININE 0.6 mg/dL (0.6-1.3); GLUCOSE 94 mg/dL (70-105); UREA NITROGEN BLOOD 13 mg/dL (9-23)
[2024-05-17 17:58] LABS: PHOSPHORUS 2.4 mg/dL (2.5-4.9)
[2024-05-17 18:10] LABS: PLATELET ESTIMATE NORMAL
[2024-05-17 18:11] LABS: POTASSIUM 2.5 mEq/L (3.5-5.1)
[2024-05-17] MEDS: KCL 10MEQ/50ML PREMIX 200 ML IV PRN (18:19)
[2024-05-17] MEDS: METOLAZONE 5MG TABLET PO NR (18:25)
[2024-05-17] MEDS: MAGNESIUM SULFATE 3 GM in DEXT 5% WATER 100 ML IV PRN (20:10)
[2024-05-17] MEDS: METOCLOPRAMIDE HCL 10MG/2ML VIAL IV SCH (21:59)
[2024-05-17] MEDS: METHYLPHENIDATE HCL 5MG TABLET PO SCH (22:44)
[2024-05-17] MEDS: AMANTADINE 100MG CAPSULE PO SCH (22:45)
[2024-05-17 23:48] LABS: BASOPHILS % 0.4 % (0.0-2.0); EOSINOPHILS % 0.2 % (0.0-5.0); HEMATOCRIT. 32.2 % (42.0-52.0); HEMOGLOBIN. 10.5 g/dL (14.0-18.0); LYMPHOCYTES % 7.5 % (20.0-50.0); MEAN CORPUSCULAR HGB CONC 32.8 g/dL (31.0-37.0); MEAN CORPUSCULAR VOLUME 88.5 fL (80.0-94.0); MEAN PLATELET VOLUME 7.6 fl (7.4-10.4); MONOCYTES % 14.2 % (2.0-8.0); NEUTROPHILS % 77.7 % (40.0-76.0); PLATELET 184 x1000/uL (130-400); RED BLOOD CELL COUNT 3.63 mill/uL (4.7-6.1); RED CELL DISTRIBUTION WIDTH 13.5 % (11.6-14.6); WHITE BLOOD COUNT 15.4 x1000/uL (4.5-11.0)
[2024-05-18] VITALS (98 sets, daily range): BP systolic 86–134; BP diastolic 57–76; PULSE 76–97; RESP 6–41; TEMP 37.00296–38.78088; O2SAT 93–100
[2024-05-18 00:58] LABS: CARBON DIOXIDE 29 mEq/L (21-32); CHLORIDE 101 mEq/L (98-107); POTASSIUM 3.4 mEq/L (3.5-5.1); SODIUM 139 mEq/L (136-145)
[2024-05-18 00:59] LABS: CALCIUM 9.1 mg/dL (8.7-10.4)
[2024-05-18 01:03] LABS: CREATININE 1.1 mg/dL (0.6-1.3)
[2024-05-18 01:04] LABS: GLUCOSE 152 mg/dL (70-105); UREA NITROGEN BLOOD 17 mg/dL (9-23)
[2024-05-18 01:06] LABS: PHOSPHORUS 3.6 mg/dL (2.5-4.9)
[2024-05-18] MEDS: MAGNESIUM 1 G PREMIX 100 ML IV PRN (01:42)
[2024-05-18] MEDS: ACETYLCYSTEINE 200MG/ML 20% VIAL 4ML INH SCH (04:46)
[2024-05-18] MEDS: PROPOFOL 10MG/ML 100ML 100 ML IV PRN (05:46)
[2024-05-18 08:43] LABS: HEMOGLOBIN. 10.4 g/dL (14.0-18.0); MEAN CORPUSCULAR HEMOGLOBIN 29.5 pg (28.0-32.0); MEAN CORPUSCULAR HGB CONC 33.5 g/dL (31.0-37.0); MEAN CORPUSCULAR VOLUME 88.1 fL (80.0-94.0); MEAN PLATELET VOLUME 7.1 fl (7.4-10.4); PLATELET 190 x1000/uL (130-400); RED BLOOD CELL COUNT 3.52 mill/uL (4.7-6.1); RED CELL DISTRIBUTION WIDTH 13.6 % (11.6-14.6); WHITE BLOOD COUNT 16.8 x1000/uL (4.5-11.0)
[2024-05-18 08:49] LABS: CHLORIDE 100 mEq/L (98-107); POTASSIUM 3.4 mEq/L (3.5-5.1); SODIUM 136 mEq/L (136-145)
[2024-05-18 08:50] LABS: CALCIUM 9.1 mg/dL (8.7-10.4); CARBON DIOXIDE 29 mEq/L (21-32)
[2024-05-18 08:55] LABS: CREATININE 1.1 mg/dL (0.6-1.3); GLUCOSE 157 mg/dL (70-105); TRIGLYCERIDE 96 mg/dL (0-150); UREA NITROGEN BLOOD 21 mg/dL (9-23)
[2024-05-18 08:57] LABS: PHOSPHORUS 3.1 mg/dL (2.5-4.9)
[2024-05-18] MEDS ORDERED: POTASSIUM CHLORIDE 40 MEQ in DEXT 5% WATER 230 ML IV ONE (09:00)
[2024-05-18 09:10] LABS: DIFFERENTIAL COMMENT 1
[2024-05-18 09:21] LABS: BG BASE EXCESS 4.3 mmol/L (-2.0-3.0); BG CARBOXYHEMOGLOBIN 0.2 % (0.5-1.5); BG DEOXYHEMOGLOBIN 2.4 % (0.0-5.0); BG FRACTION INSPIRED OXYGEN 80; BG HCO3 ACT 26.9 mmol/L (21.0-28.0); BG METHEMOGLOBIN 0.3 % (0.5-1.5); BG OXYGEN SATURATION 97.6 % (94.0-98.0); BG OXYHEMOGLOBIN 97.1 % (94.0-98.0); BG PCO2 32.8 mmHg (35.0-48.0); BG PH 7.532 (7.350-7.450); BG PO2 95.8 mmHg (83.0-108.0); BG SAMPLE SITE ALINE; BG VENT MODE VENT - AC
[2024-05-18] MEDS: KCL 20MEQ/100ML X 2 FOR TOTAL KCL 40MEQ/200ML IV SCH (09:52)
[2024-05-18] MEDS: MINERAL OIL 30ML BOTTLE PO SCH (09:53)
[2024-05-18] MEDS: METOLAZONE 10MG TABLET PO NR (09:53)
[2024-05-18] MEDS: BLOOD SUGAR DIAGNOSTIC STRIP TEST SCH ×3 (11:00→23:43)
[2024-05-18] MEDS: BUMETANIDE 2.5MG/10ML VIAL IV NR (11:45)
[2024-05-18] MEDS ORDERED: DEXTROSE 50% WATER 50ML SYRINGE IV PRN (13:30)
[2024-05-18] MEDS: HYDROCORTISONE SOD SUCCINATE 100 MG/2 ML VIAL IV SCH (13:45)
[2024-05-18 14:34] LABS: BG CARBOXYHEMOGLOBIN 0.6 % (0.5-1.5); BG DEOXYHEMOGLOBIN 2.2 % (0.0-5.0); BG FRACTION INSPIRED OXYGEN 60; BG HCO3 ACT 25.2 mmol/L (21.0-28.0); BG METHEMOGLOBIN 0.3 % (0.5-1.5); BG OXYGEN SATURATION 97.8 % (94.0-98.0); BG OXYHEMOGLOBIN 96.9 % (94.0-98.0); BG PCO2 30.5 mmHg (35.0-48.0); BG PH 7.535 (7.350-7.450); BG PO2 104.3 mmHg (83.0-108.0); BG SAMPLE SITE ALINE; BG TOTAL HEMOGLOBIN 11.2 g/dL (13.5-17.5); BG VENT MODE VENT - AC
[2024-05-18 15:18] LABS: PLATELET ESTIMATE NORMAL
[2024-05-18 16:40] LABS: CHLORIDE 98 mEq/L (98-107); POTASSIUM 3.8 mEq/L (3.5-5.1); SODIUM 133 mEq/L (136-145)
[2024-05-18 16:41] LABS: CALCIUM 9.1 mg/dL (8.7-10.4); CARBON DIOXIDE 27 mEq/L (21-32)
[2024-05-18 16:46] LABS: CREATININE 1.3 mg/dL (0.6-1.3); GLUCOSE 260 mg/dL (70-105); UREA NITROGEN BLOOD 27 mg/dL (9-23)
[2024-05-18 16:48] LABS: ALANINE AMINOTRANSFERASE 32 IU/L (10-49); ASPARTATE AMINOTRANSFERASE 70 IU/L (<34); BILIRUBIN TOTAL 1.1 mg/dL (0.1-1.0); PROTEIN TOTAL 6.7 g/dL (6.0-8.3)
[2024-05-18] MEDS: MIDODRINE HCL 5MG TABLET PO SCH (17:00)
[2024-05-18 17:01] LABS: BG BASE EXCESS 2.3 mmol/L (-2.0-3.0); BG CARBOXYHEMOGLOBIN 0.6 % (0.5-1.5); BG DEOXYHEMOGLOBIN 6.4 % (0.0-5.0); BG FRACTION INSPIRED OXYGEN 50; BG HCO3 ACT 24.9 mmol/L (21.0-28.0); BG METHEMOGLOBIN 0.3 % (0.5-1.5); BG OXYGEN SATURATION 93.5 % (94.0-98.0); BG OXYHEMOGLOBIN 92.7 % (94.0-98.0); BG PCO2 31.9 mmHg (35.0-48.0); BG PH 7.511 (7.350-7.450); BG PO2 68.4 mmHg (83.0-108.0); BG SAMPLE SITE ALINE; BG TOTAL HEMOGLOBIN 11.3 g/dL (13.5-17.5); BG VENT MODE VENT - AC
[2024-05-18] MEDS: INSULIN LISPRO 100 UNITS/ML SUBCUT SCH ×2 (18:06→23:43)
[2024-05-18 20:14] LABS: BG BASE EXCESS 3.6 mmol/L (-2.0-3.0); BG FRACTION INSPIRED OXYGEN 50; BG HCO3 ACT 26.6 mmol/L (21.0-28.0); BG METHEMOGLOBIN 0.3 % (0.5-1.5); BG OXYGEN SATURATION 94.9 % (94.0-98.0); BG OXYHEMOGLOBIN 93.7 % (94.0-98.0); BG PCO2 35.1 mmHg (35.0-48.0); BG PH 7.497 (7.350-7.450); BG SAMPLE SITE ALINE; BG TOTAL HEMOGLOBIN 15.1 g/dL (13.5-17.5); BG VENT MODE VENT - AC
[2024-05-18 20:46] LABS: HEMATOCRIT. 31.5 % (42.0-52.0); HEMOGLOBIN. 10.3 g/dL (14.0-18.0); MEAN CORPUSCULAR HEMOGLOBIN 28.7 pg (28.0-32.0); MEAN CORPUSCULAR HGB CONC 32.6 g/dL (31.0-37.0); MEAN PLATELET VOLUME 7.7 fl (7.4-10.4); PLATELET 204 x1000/uL (130-400); RED BLOOD CELL COUNT 3.58 mill/uL (4.7-6.1); RED CELL DISTRIBUTION WIDTH 13.6 % (11.6-14.6); WHITE BLOOD COUNT 17.7 x1000/uL (4.5-11.0)
[2024-05-18 20:49] LABS: DIFFERENTIAL COMMENT 1
[2024-05-18 21:03] LABS: CHLORIDE 97 mEq/L (98-107); POTASSIUM 3.7 mEq/L (3.5-5.1); SODIUM 135 mEq/L (136-145)
[2024-05-18 21:04] LABS: CARBON DIOXIDE 27 mEq/L (21-32)
[2024-05-18 21:09] LABS: CREATININE 1.3 mg/dL (0.6-1.3); GLUCOSE 281 mg/dL (70-105); UREA NITROGEN BLOOD 30 mg/dL (9-23)
[2024-05-18 21:54] LABS: PLATELET ESTIMATE NORMAL
[2024-05-18] MEDS: KCL 20MEQ/100ML PREMIX 100 ML IV SCH (22:38)
[2024-05-18] MEDS: FUROSEMIDE 100MG/10ML VIAL IVP NR (22:38)
[2024-05-18] MEDS ORDERED: INSULIN LISPRO 100 UNITS/ML SUBCUT SCH (23:15)
[2024-05-19] VITALS (106 sets, daily range): BP systolic 94–146; BP diastolic 47–108; PULSE 71–95; RESP 6–34; TEMP 37.2252–37.89192; O2SAT 88–99
[2024-05-19 05:22] LABS: HEMATOCRIT. 32.1 % (42.0-52.0); HEMOGLOBIN. 10.6 g/dL (14.0-18.0); MEAN CORPUSCULAR HEMOGLOBIN 29.1 pg (28.0-32.0); MEAN CORPUSCULAR HGB CONC 33.2 g/dL (31.0-37.0); MEAN CORPUSCULAR VOLUME 87.8 fL (80.0-94.0); MEAN PLATELET VOLUME 7.6 fl (7.4-10.4); PLATELET 250 x1000/uL (130-400); RED BLOOD CELL COUNT 3.66 mill/uL (4.7-6.1); RED CELL DISTRIBUTION WIDTH 13.5 % (11.6-14.6)
[2024-05-19 05:27] LABS: DIFFERENTIAL COMMENT 1
[2024-05-19 05:28] LABS: CHLORIDE 93 mEq/L (98-107); POTASSIUM 2.9 mEq/L (3.5-5.1); SODIUM 134 mEq/L (136-145)
[2024-05-19 05:29] LABS: CALCIUM 9.3 mg/dL (8.7-10.4); CARBON DIOXIDE 29 mEq/L (21-32)
[2024-05-19 05:34] LABS: CREATININE 1.3 mg/dL (0.6-1.3); GLUCOSE 259 mg/dL (70-105); UREA NITROGEN BLOOD 34 mg/dL (9-23)
[2024-05-19 05:36] LABS: PHOSPHORUS 4.2 mg/dL (2.5-4.9)
[2024-05-19 06:13] LABS: BG BASE EXCESS 6.8 mmol/L (-2.0-3.0); BG DEOXYHEMOGLOBIN 4.1 % (0.0-5.0); BG FRACTION INSPIRED OXYGEN 50; BG HCO3 ACT 29.9 mmol/L (21.0-28.0); BG METHEMOGLOBIN 0.3 % (0.5-1.5); BG OXYGEN SATURATION 95.8 % (94.0-98.0); BG OXYHEMOGLOBIN 94.6 % (94.0-98.0); BG PCO2 37.4 mmHg (35.0-48.0); BG PH 7.521 (7.350-7.450); BG PO2 78.8 mmHg (83.0-108.0); BG SAMPLE SITE ALINE; BG TOTAL HEMOGLOBIN 13.5 g/dL (13.5-17.5); BG VENT MODE VENT - AC
[2024-05-19] MEDS ORDERED: INSULIN LISPRO 100 UNITS/ML SUBCUT SCH ×2 (08:20→21:00)
[2024-05-19] MEDS: IPRATROPIUM/ALBUTEROL 0.5-3(2.5)MG/3ML NEB HHN SCH (09:12)
[2024-05-19] MEDS: ENOXAPARIN 40MG/0.4ML SYR SUBCUT SCH (11:10)
[2024-05-19] MEDS ORDERED: KCL 20MEQ/100ML PREMIX 100 ML IV SCH (13:00)
[2024-05-19] MEDS: FUROSEMIDE 100MG/10ML VIAL IVP NR (13:47)
[2024-05-19] MEDS: POTASSIUM CHLORIDE 40MEQ in DEXT 5% WATER 250ML IV NR (14:38)
[2024-05-19] MEDS: ACETYLCYSTEINE 200MG/ML 20% VIAL 4ML INH SCH (14:53)
[2024-05-19 18:19] LABS: PLATELET ESTIMATE NORMAL
[2024-05-19] MEDS ORDERED: BLOOD SUGAR DIAGNOSTIC STRIP TEST SCH (19:45)
[2024-05-19] MEDS ORDERED: DEXTROSE 50% WATER 50ML SYRINGE IV PRN (19:45)
[2024-05-19 20:02] LABS: BG BASE EXCESS 9.4 mmol/L (-2.0-3.0); BG CARBOXYHEMOGLOBIN 1.2 % (0.5-1.5); BG FRACTION INSPIRED OXYGEN 60; BG METHEMOGLOBIN 0.3 % (0.5-1.5); BG OXYGEN SATURATION 91.9 % (94.0-98.0); BG OXYHEMOGLOBIN 90.5 % (94.0-98.0); BG PCO2 36.6 mmHg (35.0-48.0); BG PO2 59.3 mmHg (83.0-108.0); BG SAMPLE SITE ALINE; BG VENT MODE VENT - AC
[2024-05-19 20:07] LABS: HEMATOCRIT. 31.8 % (42.0-52.0); HEMOGLOBIN. 10.6 g/dL (14.0-18.0); MEAN CORPUSCULAR HEMOGLOBIN 29.4 pg (28.0-32.0); MEAN CORPUSCULAR HGB CONC 33.4 g/dL (31.0-37.0); MEAN CORPUSCULAR VOLUME 87.9 fL (80.0-94.0); MEAN PLATELET VOLUME 7.6 fl (7.4-10.4); PLATELET 267 x1000/uL (130-400); RED BLOOD CELL COUNT 3.62 mill/uL (4.7-6.1); RED CELL DISTRIBUTION WIDTH 13.8 % (11.6-14.6); WHITE BLOOD COUNT 17.3 x1000/uL (4.5-11.0)
[2024-05-19 20:19] LABS: CHLORIDE 93 mEq/L (98-107); SODIUM 135 mEq/L (136-145)
[2024-05-19 20:20] LABS: CALCIUM 9.3 mg/dL (8.7-10.4); CARBON DIOXIDE 34 mEq/L (21-32)
[2024-05-19 20:25] LABS: CREATININE 1.2 mg/dL (0.6-1.3); GLUCOSE 240 mg/dL (70-105); UREA NITROGEN BLOOD 38 mg/dL (9-23)
[2024-05-19 20:37] LABS: DIFFERENTIAL COMMENT 1
[2024-05-19 20:39] LABS: POTASSIUM 2.8 mEq/L (3.5-5.1)
[2024-05-19] MEDS ORDERED: MAGNESIUM 4 G PREMIX 100 ML IV ONE (20:45)
[2024-05-19] MEDS ORDERED: KCL 20MEQ/100ML PREMIX 100 ML IV ONE (20:45)
[2024-05-19 21:56] LABS: PLATELET ESTIMATE NORMAL
[2024-05-19] MEDS: POTASSIUM CHLORIDE 60 MEQ in DEXT 5% WATER 470 ML IV NR (22:04)
[2024-05-20] VITALS (105 sets, daily range): BP systolic 83–161; BP diastolic 51–82; PULSE 67–87; RESP 15–33; TEMP 36.28068–37.66968; O2SAT 89–99
[2024-05-20] MEDS: BLOOD SUGAR DIAGNOSTIC STRIP TEST SCH (00:12)
[2024-05-20] MEDS: INSULIN LISPRO 100 UNITS/ML SUBCUT SCH (00:19)
[2024-05-20 06:10] LABS: BG CARBOXYHEMOGLOBIN 0.7 % (0.5-1.5); BG DEOXYHEMOGLOBIN 4.3 % (0.0-5.0); BG HCO3 ACT 31.8 mmol/L (21.0-28.0); BG METHEMOGLOBIN 0.3 % (0.5-1.5); BG OXYGEN SATURATION 95.7 % (94.0-98.0); BG OXYHEMOGLOBIN 94.7 % (94.0-98.0); BG PCO2 36.9 mmHg (35.0-48.0); BG PH 7.553 (7.350-7.450); BG PO2 78.8 mmHg (83.0-108.0); BG SAMPLE SITE ALINE; BG TOTAL HEMOGLOBIN 13.5 g/dL (13.5-17.5); BG VENT MODE VENT - AC
[2024-05-20 06:21] LABS: CHLORIDE 94 mEq/L (98-107); HEMATOCRIT. 31.3 % (42.0-52.0); HEMOGLOBIN. 10.6 g/dL (14.0-18.0); MEAN CORPUSCULAR HEMOGLOBIN 29.5 pg (28.0-32.0); MEAN CORPUSCULAR HGB CONC 33.9 g/dL (31.0-37.0); MEAN PLATELET VOLUME 7.9 fl (7.4-10.4); PLATELET 314 x1000/uL (130-400); RED BLOOD CELL COUNT 3.59 mill/uL (4.7-6.1); RED CELL DISTRIBUTION WIDTH 13.3 % (11.6-14.6); SODIUM 135 mEq/L (136-145); WHITE BLOOD COUNT 17.9 x1000/uL (4.5-11.0)
[2024-05-20 06:22] LABS: CARBON DIOXIDE 31 mEq/L (21-32)
[2024-05-20 06:23] LABS: CALCIUM 9.2 mg/dL (8.7-10.4)
[2024-05-20 06:27] LABS: CREATININE 1.1 mg/dL (0.6-1.3)
[2024-05-20 06:28] LABS: GLUCOSE 245 mg/dL (70-105); UREA NITROGEN BLOOD 39 mg/dL (9-23)
[2024-05-20 06:29] LABS: ALANINE AMINOTRANSFERASE 401 IU/L (10-49); ASPARTATE AMINOTRANSFERASE 501 IU/L (<34)
[2024-05-20 06:30] LABS: ALBUMIN 3.9 g/dL (3.2-4.8); BILIRUBIN TOTAL 0.5 mg/dL (0.1-1.0); PROTEIN TOTAL 6.7 g/dL (6.0-8.3)
[2024-05-20 06:45] LABS: DIFFERENTIAL COMMENT 1
[2024-05-20 07:43] LABS: POTASSIUM 2.8 mEq/L (3.5-5.1)
[2024-05-20] MEDS ORDERED: POTASSIUM CHLORIDE 20 MEQ in DEXT 5% WATER 90 ML IV ONE (08:15)
[2024-05-20] MEDS ORDERED: MAGNESIUM 2 G PREMIX 50 ML IV ONE (08:15)
[2024-05-20] MEDS: POTASSIUM CHLORIDE IV NR (10:27)
[2024-05-20] MEDS: WATER IV NR (10:27)
[2024-05-20] MEDS: DEXT 5% IV NR (10:27)
[2024-05-20] MEDS: SPIRONOLACTONE 25MG TABLET PO SCH (12:14)
[2024-05-20 12:30] LABS: BG BASE EXCESS 6.8 mmol/L (-2.0-3.0); BG CARBOXYHEMOGLOBIN 0.3 % (0.5-1.5); BG DEOXYHEMOGLOBIN 3.4 % (0.0-5.0); BG HCO3 ACT 29.2 mmol/L (21.0-28.0); BG METHEMOGLOBIN 0.3 % (0.5-1.5); BG OXYGEN SATURATION 96.6 % (94.0-98.0); BG PCO2 33.7 mmHg (35.0-48.0); BG PH 7.556 (7.350-7.450); BG PO2 85.6 mmHg (83.0-108.0); BG SAMPLE SITE ALINE; BG TOTAL HEMOGLOBIN 11.1 g/dL (13.5-17.5); BG VENT MODE VENT - AC
[2024-05-20] MEDS: ALBUMIN HUMAN 12.5G/250ML (5%) IV NR (14:38)
[2024-05-20] MEDS: ACETAZOLAMIDE SODIUM 500MG/VIAL IV NR (14:38)
[2024-05-20] MEDS: FUROSEMIDE 40MG/4ML VIAL IVP NR (18:25)
[2024-05-20 18:48] LABS: BG BASE EXCESS 7.8 mmol/L (-2.0-3.0); BG CARBOXYHEMOGLOBIN 0.1 % (0.5-1.5); BG DEOXYHEMOGLOBIN 3.7 % (0.0-5.0); BG FRACTION INSPIRED OXYGEN 50; BG HCO3 ACT 31.1 mmol/L (21.0-28.0); BG METHEMOGLOBIN 0.3 % (0.5-1.5); BG OXYGEN SATURATION 96.3 % (94.0-98.0); BG OXYHEMOGLOBIN 95.9 % (94.0-98.0); BG PCO2 38.3 mmHg (35.0-48.0); BG PH 7.527 (7.350-7.450); BG PO2 82.9 mmHg (83.0-108.0); BG SAMPLE SITE ALINE; BG TOTAL HEMOGLOBIN 11.2 g/dL (13.5-17.5); BG TOTAL RESPIRATORY RATE 26 b/min; BG VENT MODE VENT - AC
[2024-05-20 20:30] LABS: CHLORIDE 96 mEq/L (98-107); SODIUM 135 mEq/L (136-145)
[2024-05-20 20:31] LABS: CARBON DIOXIDE 30 mEq/L (21-32)
[2024-05-20 20:32] LABS: CALCIUM 9.2 mg/dL (8.7-10.4)
[2024-05-20 20:36] LABS: CREATININE 1.1 mg/dL (0.6-1.3); GLUCOSE 186 mg/dL (70-105)
[2024-05-20 20:37] LABS: UREA NITROGEN BLOOD 36 mg/dL (9-23)
[2024-05-20 20:40] LABS: PLATELET ESTIMATE NORMAL
[2024-05-20 20:47] LABS: POTASSIUM 2.6 mEq/L (3.5-5.1)
[2024-05-20] MEDS: FUROSEMIDE 40MG/4ML VIAL IVP SCH (21:06)
[2024-05-20 21:22] LABS: BG BASE EXCESS 7.3 mmol/L (-2.0-3.0); BG CARBOXYHEMOGLOBIN 0.9 % (0.5-1.5); BG DEOXYHEMOGLOBIN 2.5 % (0.0-5.0); BG FRACTION INSPIRED OXYGEN 60; BG HCO3 ACT 30.1 mmol/L (21.0-28.0); BG METHEMOGLOBIN 0.3 % (0.5-1.5); BG OXYGEN SATURATION 97.5 % (94.0-98.0); BG OXYHEMOGLOBIN 96.3 % (94.0-98.0); BG PCO2 36.8 mmHg (35.0-48.0); BG PH 7.531 (7.350-7.450); BG PO2 97.3 mmHg (83.0-108.0); BG SAMPLE SITE ALINE; BG TOTAL HEMOGLOBIN 16.7 g/dL (13.5-17.5); BG VENT MODE VENT - AC
[2024-05-20] MEDS: MAGNESIUM 1 G PREMIX 100 ML IV SCH (23:41)
[2024-05-20] MEDS: POTASSIUM CHLORIDE 40 MEQ in DEXT 5% WATER 230 ML IV SCH (23:59)
[2024-05-21] VITALS (105 sets, daily range): BP systolic 93–145; BP diastolic 56–104; PULSE 72–105; RESP 6–34; TEMP 36.3918–36.72516; O2SAT 80–99
[2024-05-21 06:15] LABS: BG BASE EXCESS 7.6 mmol/L (-2.0-3.0); BG CARBOXYHEMOGLOBIN 1.1 % (0.5-1.5); BG DEOXYHEMOGLOBIN 8.3 % (0.0-5.0); BG HCO3 ACT 30.2 mmol/L (21.0-28.0); BG METHEMOGLOBIN 0.3 % (0.5-1.5); BG OXYGEN SATURATION 91.6 % (94.0-98.0); BG OXYHEMOGLOBIN 90.3 % (94.0-98.0); BG PCO2 35.9 mmHg (35.0-48.0); BG PH 7.543 (7.350-7.450); BG PO2 58.1 mmHg (83.0-108.0); BG SAMPLE SITE ALINE; BG TOTAL HEMOGLOBIN 15.7 g/dL (13.5-17.5); BG VENT MODE VENT - AC
[2024-05-21] MEDS: LIDOCAINE HCL 1% 10 MG/ML 10ML VIAL ONE (08:40)
[2024-05-21] MEDS: POTASSIUM CHLORIDE 20MEQ/PACKET PO SCH (09:59)
[2024-05-21 12:56] LABS: CREATININE URINE RANDOM 40.8 mg/dL
[2024-05-21 13:59] LABS: HEMATOCRIT. 34.2 % (42.0-52.0); HEMOGLOBIN. 11.2 g/dL (14.0-18.0); MEAN CORPUSCULAR HEMOGLOBIN 28.7 pg (28.0-32.0); MEAN CORPUSCULAR HGB CONC 32.9 g/dL (31.0-37.0); MEAN CORPUSCULAR VOLUME 87.3 fL (80.0-94.0); MEAN PLATELET VOLUME 7.9 fl (7.4-10.4); PLATELET 458 x1000/uL (130-400); RED BLOOD CELL COUNT 3.92 mill/uL (4.7-6.1); RED CELL DISTRIBUTION WIDTH 13.8 % (11.6-14.6); WHITE BLOOD COUNT 24.6 x1000/uL (4.5-11.0)
[2024-05-21 14:03] LABS: DIFFERENTIAL COMMENT 1
[2024-05-21 14:06] LABS: CHLORIDE 96 mEq/L (98-107); POTASSIUM 4.5 mEq/L (3.5-5.1); SODIUM 135 mEq/L (136-145)
[2024-05-21 14:07] LABS: CARBON DIOXIDE 30 mEq/L (21-32)
[2024-05-21 14:08] LABS: CALCIUM 9.2 mg/dL (8.7-10.4)
[2024-05-21 14:12] LABS: CREATININE 1.3 mg/dL (0.6-1.3); GLUCOSE 206 mg/dL (70-105); UREA NITROGEN BLOOD 44 mg/dL (9-23)
[2024-05-21 14:15] LABS: PHOSPHORUS 4.2 mg/dL (2.5-4.9)
[2024-05-21 14:19] LABS: BG BASE EXCESS 7.9 mmol/L (-2.0-3.0); BG CARBOXYHEMOGLOBIN 0.8 % (0.5-1.5); BG DEOXYHEMOGLOBIN 5.2 % (0.0-5.0); BG HCO3 ACT 29.3 mmol/L (21.0-28.0); BG METHEMOGLOBIN 0.3 % (0.5-1.5); BG OXYGEN SATURATION 94.7 % (94.0-98.0); BG OXYHEMOGLOBIN 93.7 % (94.0-98.0); BG PH 7.593 (7.350-7.450); BG PO2 67.7 mmHg (83.0-108.0); BG SAMPLE SITE ALINE; BG TOTAL HEMOGLOBIN 13.6 g/dL (13.5-17.5); BG VENT MODE VENT - AC
[2024-05-21 14:31] LABS: ALANINE AMINOTRANSFERASE 303 IU/L (10-49); ALBUMIN 4.1 g/dL (3.2-4.8); ASPARTATE AMINOTRANSFERASE 127 IU/L (<34); BILIRUBIN DIRECT 0.3 mg/dL (<=3.0); BILIRUBIN TOTAL 0.8 mg/dL (0.1-1.0); PROTEIN TOTAL 6.9 g/dL (6.0-8.3)
[2024-05-21 15:32] LABS: PLATELET ESTIMATE NORMAL
[2024-05-22] VITALS (105 sets, daily range): BP systolic 93–145; BP diastolic 60–81; PULSE 90–105; RESP 15–39; TEMP 36.50292–39.11424; O2SAT 18–100
[2024-05-22 06:37] LABS: HEMATOCRIT. 32.9 % (42.0-52.0); HEMOGLOBIN. 10.9 g/dL (14.0-18.0); MEAN CORPUSCULAR HEMOGLOBIN 29.2 pg (28.0-32.0); MEAN CORPUSCULAR HGB CONC 33.3 g/dL (31.0-37.0); MEAN CORPUSCULAR VOLUME 87.9 fL (80.0-94.0); MEAN PLATELET VOLUME 7.6 fl (7.4-10.4); PLATELET 494 x1000/uL (130-400); RED BLOOD CELL COUNT 3.74 mill/uL (4.7-6.1); RED CELL DISTRIBUTION WIDTH 13.8 % (11.6-14.6); WHITE BLOOD COUNT 25.5 x1000/uL (4.5-11.0)
[2024-05-22 06:47] LABS: CHLORIDE 98 mEq/L (98-107); SODIUM 139 mEq/L (136-145)
[2024-05-22 06:48] LABS: CALCIUM 9.3 mg/dL (8.7-10.4); CARBON DIOXIDE 32 mEq/L (21-32)
[2024-05-22 06:50] LABS: INR 1.1; PROTHROMBIN TIME 12.1 sec (9.6-11.0)
[2024-05-22 06:53] LABS: CREATININE 1.2 mg/dL (0.6-1.3); GLUCOSE 175 mg/dL (70-105); UREA NITROGEN BLOOD 39 mg/dL (9-23)
[2024-05-22 06:55] LABS: ALANINE AMINOTRANSFERASE 222 IU/L (10-49); ASPARTATE AMINOTRANSFERASE 67 IU/L (<34); BILIRUBIN TOTAL 1.1 mg/dL (0.1-1.0); PROTEIN TOTAL 6.8 g/dL (6.0-8.3)
[2024-05-22 07:17] LABS: DIFFERENTIAL COMMENT 1
[2024-05-22 07:40] LABS: POTASSIUM 2.8 mEq/L (3.5-5.1)
[2024-05-22 09:55] LABS: BG BASE EXCESS 9.3 mmol/L (-2.0-3.0); BG CARBOXYHEMOGLOBIN 0.7 % (0.5-1.5); BG DEOXYHEMOGLOBIN 1.9 % (0.0-5.0); BG FRACTION INSPIRED OXYGEN 50; BG HCO3 ACT 31.7 mmol/L (21.0-28.0); BG METHEMOGLOBIN 0.3 % (0.5-1.5); BG OXYGEN SATURATION 98.1 % (94.0-98.0); BG OXYHEMOGLOBIN 97.1 % (94.0-98.0); BG PCO2 35.5 mmHg (35.0-48.0); BG PH 7.569 (7.350-7.450); BG PO2 104.5 mmHg (83.0-108.0); BG TOTAL HEMOGLOBIN 12.2 g/dL (13.5-17.5); BG VENT MODE VENT - AC
[2024-05-22] MEDS: KCL 20MEQ/100ML PREMIX 100 ML IV NR (14:11)
[2024-05-22] MEDS: FUROSEMIDE 40MG/4ML VIAL IVP SCH (15:00)
[2024-05-22 15:27] LABS: NUCLEATED RED BLOOD CELLS 1 /100 WBC
[2024-05-22 15:28] LABS: PLATELET ESTIMATE INCREASED
[2024-05-22 20:41] LABS: CHLORIDE 101 mEq/L (98-107); POTASSIUM 2.9 mEq/L (3.5-5.1); SODIUM 140 mEq/L (136-145)
[2024-05-22 20:42] LABS: CALCIUM 8.9 mg/dL (8.7-10.4); CARBON DIOXIDE 31 mEq/L (21-32)
[2024-05-22 20:47] LABS: CREATININE 1.3 mg/dL (0.6-1.3); GLUCOSE 164 mg/dL (70-105); UREA NITROGEN BLOOD 39 mg/dL (9-23)
[2024-05-22 20:49] LABS: PHOSPHORUS 3.2 mg/dL (2.5-4.9)
[2024-05-22] MEDS: PANTOPRAZOLE SODIUM 40 MG/VIAL IV SCH (21:13)
[2024-05-23] VITALS (93 sets, daily range): BP systolic 112–141; BP diastolic 65–82; PULSE 80–101; RESP 14–31; TEMP 36.28068–38.22528; O2SAT 96–100
[2024-05-23 02:11] LABS: POTASSIUM 3.2 mEq/L (3.5-5.1)
[2024-05-23 05:26] LABS: HEMATOCRIT. 32.9 % (42.0-52.0); HEMOGLOBIN. 10.7 g/dL (14.0-18.0); MEAN CORPUSCULAR HEMOGLOBIN 28.8 pg (28.0-32.0); MEAN CORPUSCULAR HGB CONC 32.5 g/dL (31.0-37.0); MEAN CORPUSCULAR VOLUME 88.5 fL (80.0-94.0); MEAN PLATELET VOLUME 7.7 fl (7.4-10.4); PLATELET 574 x1000/uL (130-400); RED BLOOD CELL COUNT 3.72 mill/uL (4.7-6.1); RED CELL DISTRIBUTION WIDTH 14.2 % (11.6-14.6); WHITE BLOOD COUNT 24.8 x1000/uL (4.5-11.0)
[2024-05-23 05:56] LABS: DIFFERENTIAL COMMENT 1
[2024-05-23 05:59] LABS: FOLIC ACID (FOLATE) SERUM 19.75 ng/mL (>5.38)
[2024-05-23 06:00] LABS: FERRITIN 1087 ng/mL (22-322)
[2024-05-23 06:01] LABS: VITAMIN B12 SERUM 876 pg/mL (211-911)
[2024-05-23 06:11] LABS: HEPATITIS B SURFACE ANTIGEN NEGATIVE (Negative)
[2024-05-23 06:32] LABS: HEPATITIS A AB IGM NEGATIVE (Negative); HEPATITIS B CORE AB IGM NEGATIVE (Negative)
[2024-05-23 06:33] LABS: HEPATITIS C AB NON REACTIVE (Neg) (Negative)
[2024-05-23 07:40] LABS: CHLORIDE 104 mEq/L (98-107); POTASSIUM 3.1 mEq/L (3.5-5.1); SODIUM 142 mEq/L (136-145)
[2024-05-23 07:41] LABS: CALCIUM 9.3 mg/dL (8.7-10.4); CARBON DIOXIDE 31 mEq/L (21-32)
[2024-05-23 07:45] LABS: IRON 35 ug/dL (65-175)
[2024-05-23 07:46] LABS: CREATININE 1.1 mg/dL (0.6-1.3); GLUCOSE 167 mg/dL (70-105); UREA NITROGEN BLOOD 34 mg/dL (9-23)
[2024-05-23 07:47] LABS: ALBUMIN 3.8 g/dL (3.2-4.8); PROTEIN TOTAL 6.6 g/dL (6.0-8.3)
[2024-05-23 07:48] LABS: ALANINE AMINOTRANSFERASE 151 IU/L (10-49); ASPARTATE AMINOTRANSFERASE 47 IU/L (<34); TOTAL IRON BINDING CAPACITY 642 ug/dl (250-425)
[2024-05-23 11:06] LABS: BG CARBOXYHEMOGLOBIN 0.1 % (0.5-1.5); BG DEOXYHEMOGLOBIN 2.3 % (0.0-5.0); BG FRACTION INSPIRED OXYGEN 50; BG HCO3 ACT 24.3 mmol/L (21.0-28.0); BG METHEMOGLOBIN 0.3 % (0.5-1.5); BG OXYGEN SATURATION 97.7 % (94.0-98.0); BG OXYHEMOGLOBIN 97.3 % (94.0-98.0); BG PCO2 27.1 mmHg (35.0-48.0); BG PH 7.571 (7.350-7.450); BG PO2 98.1 mmHg (83.0-108.0); BG SAMPLE SITE RIGHT RADIAL; BG VENT MODE VENT - AC
[2024-05-23] MEDS ORDERED: POTASSIUM CHLORIDE 40 MEQ in SODIUM CHLORIDE 0.9% 230 ML IV NR (15:00)
[2024-05-23 17:52] LABS: POTASSIUM 3.4 mEq/L (3.5-5.1)
[2024-05-23] MEDS: IOHEXOL-350 100 ML BOTTLE ONE (20:06)
[2024-05-23 20:16] LABS: PLATELET ESTIMATE INCREASED
[2024-05-23] MEDS: METOCLOPRAMIDE HCL 10MG/2ML VIAL IV SCH (20:29)
[2024-05-23] MEDS: IPRATROPIUM/ALBUTEROL 0.5-3(2.5)MG/3ML NEB HHN SCH (20:47)
[2024-05-24] VITALS (59 sets, daily range): BP systolic 114–156; BP diastolic 60–85; PULSE 79–96; RESP 12–30; TEMP 36.28068–37.89192; O2SAT 96–100
[2024-05-24 05:22] LABS: BASOPHILS % 0.5 % (0.0-2.0); DIFFERENTIAL COMMENT 0; EOSINOPHILS % 0.7 % (0.0-5.0); HEMATOCRIT. 32.3 % (42.0-52.0); HEMOGLOBIN. 10.4 g/dL (14.0-18.0); LYMPHOCYTES % 7.2 % (20.0-50.0); MEAN CORPUSCULAR HEMOGLOBIN 28.7 pg (28.0-32.0); MEAN CORPUSCULAR HGB CONC 32.3 g/dL (31.0-37.0); MEAN CORPUSCULAR VOLUME 88.8 fL (80.0-94.0); MEAN PLATELET VOLUME 7.5 fl (7.4-10.4); MONOCYTES % 6.1 % (2.0-8.0); NEUTROPHILS % 85.5 % (40.0-76.0); PLATELET 637 x1000/uL (130-400); RED BLOOD CELL COUNT 3.64 mill/uL (4.7-6.1); RED CELL DISTRIBUTION WIDTH 14.1 % (11.6-14.6); WHITE BLOOD COUNT 23.7 x1000/uL (4.5-11.0)
[2024-05-24 05:26] LABS: CHLORIDE 109 mEq/L (98-107); POTASSIUM 3.3 mEq/L (3.5-5.1); SODIUM 144 mEq/L (136-145)
[2024-05-24 05:27] LABS: CALCIUM 8.8 mg/dL (8.7-10.4); CARBON DIOXIDE 28 mEq/L (21-32)
[2024-05-24 05:32] LABS: CREATININE 0.9 mg/dL (0.6-1.3); GLUCOSE 159 mg/dL (70-105); UREA NITROGEN BLOOD 32 mg/dL (9-23)
[2024-05-24 05:34] LABS: PHOSPHORUS 3.1 mg/dL (2.5-4.9)
[2024-05-24 08:40] LABS: BG BASE EXCESS 3.6 mmol/L (-2.0-3.0); BG CARBOXYHEMOGLOBIN 0.6 % (0.5-1.5); BG DEOXYHEMOGLOBIN 2.3 % (0.0-5.0); BG FRACTION INSPIRED OXYGEN 40; BG HCO3 ACT 25.2 mmol/L (21.0-28.0); BG METHEMOGLOBIN 0.3 % (0.5-1.5); BG OXYGEN SATURATION 97.7 % (94.0-98.0); BG OXYHEMOGLOBIN 96.8 % (94.0-98.0); BG PCO2 28.1 mmHg (35.0-48.0); BG SAMPLE SITE RIGHT RADIAL; BG TOTAL HEMOGLOBIN 10.6 g/dL (13.5-17.5); BG VENT MODE VENT - AC
[2024-05-24 16:26] LABS: POTASSIUM 3.5 mEq/L (3.5-5.1)
[2024-05-25] VITALS (69 sets, daily range): BP systolic 90–152; BP diastolic 64–87; PULSE 85–103; RESP 13–32; TEMP 36.6696–37.503; O2SAT 94–100
[2024-05-25 09:23] LABS: BG BASE EXCESS 2.4 mmol/L (-2.0-3.0); BG CARBOXYHEMOGLOBIN 0.4 % (0.5-1.5); BG DEOXYHEMOGLOBIN 1.3 % (0.0-5.0); BG FRACTION INSPIRED OXYGEN 40; BG HCO3 ACT 24.5 mmol/L (21.0-28.0); BG METHEMOGLOBIN 0.3 % (0.5-1.5); BG OXYGEN SATURATION 98.7 % (94.0-98.0); BG PCO2 29.5 mmHg (35.0-48.0); BG PH 7.537 (7.350-7.450); BG SAMPLE SITE RIGHT RADIAL; BG TOTAL HEMOGLOBIN 10.7 g/dL (13.5-17.5); BG VENT MODE VENT - AC
[2024-05-25 10:55] LABS: BASOPHILS % 0.2 % (0.0-2.0); EOSINOPHILS % 1.9 % (0.0-5.0); HEMATOCRIT. 32.9 % (42.0-52.0); HEMOGLOBIN. 10.5 g/dL (14.0-18.0); LYMPHOCYTES % 7.6 % (20.0-50.0); MEAN CORPUSCULAR HEMOGLOBIN 28.2 pg (28.0-32.0); MEAN CORPUSCULAR HGB CONC 31.9 g/dL (31.0-37.0); MEAN CORPUSCULAR VOLUME 88.4 fL (80.0-94.0); MEAN PLATELET VOLUME 7.4 fl (7.4-10.4); MONOCYTES % 6.3 % (2.0-8.0); PLATELET 697 x1000/uL (130-400); RED BLOOD CELL COUNT 3.73 mill/uL (4.7-6.1); WHITE BLOOD COUNT 19.8 x1000/uL (4.5-11.0)
[2024-05-25 10:57] LABS: CHLORIDE 109 mEq/L (98-107); POTASSIUM 3.4 mEq/L (3.5-5.1); SODIUM 146 mEq/L (136-145)
[2024-05-25 10:58] LABS: CARBON DIOXIDE 25 mEq/L (21-32)
[2024-05-25 10:59] LABS: CALCIUM 9.2 mg/dL (8.7-10.4)
[2024-05-25 11:03] LABS: CREATININE 1.1 mg/dL (0.6-1.3); GLUCOSE 179 mg/dL (70-105); UREA NITROGEN BLOOD 27 mg/dL (9-23)
[2024-05-25 11:06] LABS: PHOSPHORUS 4.3 mg/dL (2.5-4.9)
[2024-05-25 21:00] LABS: CHLORIDE 112 mEq/L (98-107); POTASSIUM 4.1 mEq/L (3.5-5.1); SODIUM 148 mEq/L (136-145)
[2024-05-25 21:01] LABS: CARBON DIOXIDE 25 mEq/L (21-32)
[2024-05-25 21:06] LABS: GLUCOSE 159 mg/dL (70-105)
[2024-05-25 21:07] LABS: UREA NITROGEN BLOOD 26 mg/dL (9-23)
[2024-05-25 21:09] LABS: PHOSPHORUS 3.9 mg/dL (2.5-4.9)
[2024-05-26] VITALS (71 sets, daily range): BP systolic 103–150; BP diastolic 64–109; PULSE 81–103; RESP 14–40; TEMP 36.50292–37.16964; O2SAT 94–100
[2024-05-26 06:17] LABS: CHLORIDE 112 mEq/L (98-107); POTASSIUM 3.9 mEq/L (3.5-5.1); SODIUM 147 mEq/L (136-145)
[2024-05-26 06:18] LABS: CALCIUM 9.3 mg/dL (8.7-10.4); CARBON DIOXIDE 25 mEq/L (21-32)
[2024-05-26 06:23] LABS: GLUCOSE 143 mg/dL (70-105); UREA NITROGEN BLOOD 26 mg/dL (9-23)
[2024-05-26 06:24] LABS: ALANINE AMINOTRANSFERASE 91 IU/L (10-49)
[2024-05-26 06:25] LABS: ALBUMIN 3.8 g/dL (3.2-4.8); ASPARTATE AMINOTRANSFERASE 53 IU/L (<34); BILIRUBIN TOTAL 0.8 mg/dL (0.1-1.0)
[2024-05-26 06:26] LABS: PROTEIN TOTAL 6.6 g/dL (6.0-8.3)
[2024-05-26 06:34] LABS: BASOPHILS % 0.4 % (0.0-2.0); EOSINOPHILS % 1.6 % (0.0-5.0); HEMATOCRIT. 33.8 % (42.0-52.0); HEMOGLOBIN. 10.8 g/dL (14.0-18.0); LYMPHOCYTES % 8.4 % (20.0-50.0); MEAN CORPUSCULAR HEMOGLOBIN 28.5 pg (28.0-32.0); MEAN CORPUSCULAR VOLUME 88.9 fL (80.0-94.0); MEAN PLATELET VOLUME 7.4 fl (7.4-10.4); MONOCYTES % 6.3 % (2.0-8.0); NEUTROPHILS % 83.3 % (40.0-76.0); PLATELET 702 x1000/uL (130-400); RED CELL DISTRIBUTION WIDTH 14.1 % (11.6-14.6); WHITE BLOOD COUNT 19.6 x1000/uL (4.5-11.0)
[2024-05-26 09:08] LABS: BG BASE EXCESS -0.3 mmol/L (-2.0-3.0); BG CARBOXYHEMOGLOBIN 0.4 % (0.5-1.5); BG DEOXYHEMOGLOBIN 1.7 % (0.0-5.0); BG FRACTION INSPIRED OXYGEN 40; BG HCO3 ACT 21.2 mmol/L (21.0-28.0); BG METHEMOGLOBIN 0.3 % (0.5-1.5); BG OXYGEN SATURATION 98.3 % (94.0-98.0); BG OXYHEMOGLOBIN 97.6 % (94.0-98.0); BG PCO2 25.6 mmHg (35.0-48.0); BG PH 7.536 (7.350-7.450); BG SAMPLE SITE RIGHT RADIAL; BG TOTAL HEMOGLOBIN 11.1 g/dL (13.5-17.5); BG VENT MODE VENT - AC
[2024-05-26] MEDS: ASPIRIN 81MG TABLET NG SCH (10:30)
[2024-05-26] MEDS ORDERED: METHYLPHENIDATE HCL 5MG TABLET NG SCH (22:00)
[2024-05-27] VITALS (55 sets, daily range): BP systolic 102–141; BP diastolic 63–105; PULSE 87–103; RESP 16–31; TEMP 36.6696–37.83636; O2SAT 96–100
[2024-05-27 08:17] LABS: CHLORIDE 112 mEq/L (98-107); SODIUM 147 mEq/L (136-145)
[2024-05-27 08:19] LABS: CARBON DIOXIDE 25 mEq/L (21-32)
[2024-05-27 08:20] LABS: CALCIUM 9.2 mg/dL (8.7-10.4)
[2024-05-27 08:24] LABS: CREATININE 1.1 mg/dL (0.6-1.3); GLUCOSE 200 mg/dL (70-105)
[2024-05-27 08:25] LABS: UREA NITROGEN BLOOD 29 mg/dL (9-23)
[2024-05-27 08:26] LABS: ALANINE AMINOTRANSFERASE 113 IU/L (10-49); ALBUMIN 3.6 g/dL (3.2-4.8); ASPARTATE AMINOTRANSFERASE 74 IU/L (<34)
[2024-05-27 08:27] LABS: BILIRUBIN TOTAL 0.7 mg/dL (0.1-1.0); PHOSPHORUS 3.8 mg/dL (2.5-4.9); PROTEIN TOTAL 6.7 g/dL (6.0-8.3)
[2024-05-27 08:29] LABS: BASOPHILS % 0.4 % (0.0-2.0); EOSINOPHILS % 1.5 % (0.0-5.0); HEMATOCRIT. 33.2 % (42.0-52.0); HEMOGLOBIN. 10.6 g/dL (14.0-18.0); LYMPHOCYTES % 7.6 % (20.0-50.0); MEAN CORPUSCULAR HEMOGLOBIN 28.5 pg (28.0-32.0); MEAN CORPUSCULAR HGB CONC 32.1 g/dL (31.0-37.0); MEAN CORPUSCULAR VOLUME 88.8 fL (80.0-94.0); MEAN PLATELET VOLUME 7.4 fl (7.4-10.4); MONOCYTES % 6.2 % (2.0-8.0); NEUTROPHILS % 84.3 % (40.0-76.0); PLATELET 691 x1000/uL (130-400); RED BLOOD CELL COUNT 3.74 mill/uL (4.7-6.1); RED CELL DISTRIBUTION WIDTH 13.8 % (11.6-14.6); WHITE BLOOD COUNT 20.1 x1000/uL (4.5-11.0)
[2024-05-27] MEDS: METOCLOPRAMIDE HCL 10MG/2ML VIAL IV SCH (08:53)
[2024-05-27 10:59] LABS: BG CARBOXYHEMOGLOBIN 0.4 % (0.5-1.5); BG FRACTION INSPIRED OXYGEN 40; BG HCO3 ACT 20.3 mmol/L (21.0-28.0); BG METHEMOGLOBIN 0.3 % (0.5-1.5); BG OXYHEMOGLOBIN 98.3 % (94.0-98.0); BG PCO2 24.3 mmHg (35.0-48.0); BG PO2 156.8 mmHg (83.0-108.0); BG SAMPLE SITE RIGHT RADIAL; BG VENT MODE VENT - AC
[2024-05-27] MEDS: MAGNESIUM 2 G PREMIX 50 ML IV NR (13:19)
[2024-05-27] MEDS: LEVETIRACETAM 500MG TABLET PO SCH (20:56)
[2024-05-28] VITALS (49 sets, daily range): BP systolic 106–128; BP diastolic 64–82; PULSE 71–97; RESP 15–31; TEMP 36.6696–37.33632; O2SAT 95–99
[2024-05-28 07:05] LABS: BASOPHILS % 0.6 % (0.0-2.0); EOSINOPHILS % 2.3 % (0.0-5.0); HEMATOCRIT. 34.1 % (42.0-52.0); HEMOGLOBIN. 10.8 g/dL (14.0-18.0); LYMPHOCYTES % 8.6 % (20.0-50.0); MEAN CORPUSCULAR HEMOGLOBIN 28.3 pg (28.0-32.0); MEAN CORPUSCULAR HGB CONC 31.7 g/dL (31.0-37.0); MEAN CORPUSCULAR VOLUME 89.3 fL (80.0-94.0); MEAN PLATELET VOLUME 7.7 fl (7.4-10.4); MONOCYTES % 6.7 % (2.0-8.0); NEUTROPHILS % 81.8 % (40.0-76.0); PLATELET 736 x1000/uL (130-400); RED BLOOD CELL COUNT 3.81 mill/uL (4.7-6.1); WHITE BLOOD COUNT 19.2 x1000/uL (4.5-11.0)
[2024-05-28 07:17] LABS: CARBON DIOXIDE 24 mEq/L (21-32); CHLORIDE 115 mEq/L (98-107); POTASSIUM 4.4 mEq/L (3.5-5.1); SODIUM 150 mEq/L (136-145)
[2024-05-28 07:22] LABS: CREATININE 1.1 mg/dL (0.6-1.3); GLUCOSE 140 mg/dL (70-105); UREA NITROGEN BLOOD 28 mg/dL (9-23)
[2024-05-28 09:05] LABS: BG BASE EXCESS -2.8 mmol/L (-2.0-3.0); BG CARBOXYHEMOGLOBIN 0.7 % (0.5-1.5); BG DEOXYHEMOGLOBIN 1.4 % (0.0-5.0); BG FRACTION INSPIRED OXYGEN 40; BG HCO3 ACT 19.8 mmol/L (21.0-28.0); BG METHEMOGLOBIN 0.3 % (0.5-1.5); BG OXYGEN SATURATION 98.6 % (94.0-98.0); BG OXYHEMOGLOBIN 97.6 % (94.0-98.0); BG PH 7.483 (7.350-7.450); BG PO2 130.4 mmHg (83.0-108.0); BG SAMPLE SITE RIGHT RADIAL; BG TOTAL HEMOGLOBIN 9.9 g/dL (13.5-17.5); BG VENT MODE VENT - AC
[2024-05-29] VITALS (60 sets, daily range): BP systolic 99–152; BP diastolic 57–119; PULSE 87–98; RESP 15–40; TEMP 35.94732–37.7808; O2SAT 96–100
[2024-05-29 07:03] LABS: CHLORIDE 114 mEq/L (98-107); POTASSIUM 4.1 mEq/L (3.5-5.1); SODIUM 148 mEq/L (136-145)
[2024-05-29 07:04] LABS: CARBON DIOXIDE 24 mEq/L (21-32)
[2024-05-29 07:09] LABS: CREATININE 1.1 mg/dL (0.6-1.3); GLUCOSE 130 mg/dL (70-105); UREA NITROGEN BLOOD 30 mg/dL (9-23)
[2024-05-29 07:15] LABS: BASOPHILS % 0.4 % (0.0-2.0); EOSINOPHILS % 1.4 % (0.0-5.0); HEMATOCRIT. 35.1 % (42.0-52.0); HEMOGLOBIN. 11.3 g/dL (14.0-18.0); LYMPHOCYTES % 9.9 % (20.0-50.0); MEAN CORPUSCULAR HGB CONC 32.1 g/dL (31.0-37.0); MEAN CORPUSCULAR VOLUME 90.4 fL (80.0-94.0); MEAN PLATELET VOLUME 7.7 fl (7.4-10.4); MONOCYTES % 7.4 % (2.0-8.0); NEUTROPHILS % 80.9 % (40.0-76.0); PLATELET 673 x1000/uL (130-400); RED BLOOD CELL COUNT 3.88 mill/uL (4.7-6.1); RED CELL DISTRIBUTION WIDTH 14.3 % (11.6-14.6); WHITE BLOOD COUNT 19.8 x1000/uL (4.5-11.0)
[2024-05-29 08:17] LABS: BG BASE EXCESS -1.3 mmol/L (-2.0-3.0); BG CARBOXYHEMOGLOBIN 0.9 % (0.5-1.5); BG DEOXYHEMOGLOBIN 2.6 % (0.0-5.0); BG FRACTION INSPIRED OXYGEN 30; BG HCO3 ACT 19.7 mmol/L (21.0-28.0); BG METHEMOGLOBIN 0.3 % (0.5-1.5); BG OXYGEN SATURATION 97.4 % (94.0-98.0); BG OXYHEMOGLOBIN 96.2 % (94.0-98.0); BG PCO2 23.1 mmHg (35.0-48.0); BG PH 7.548 (7.350-7.450); BG PO2 90.8 mmHg (83.0-108.0); BG SAMPLE SITE RIGHT RADIAL; BG TOTAL HEMOGLOBIN 11.6 g/dL (13.5-17.5); BG VENT MODE VENT - AC
[2024-05-30] VITALS (64 sets, daily range): BP systolic 102–134; BP diastolic 65–95; PULSE 89–110; RESP 0–48; TEMP 36.50292–37.55856; O2SAT 95–100
[2024-05-30 06:29] LABS: CARBON DIOXIDE 23 mEq/L (21-32); CHLORIDE 111 mEq/L (98-107); POTASSIUM 4.4 mEq/L (3.5-5.1); SODIUM 146 mEq/L (136-145)
[2024-05-30 06:30] LABS: CALCIUM 9.4 mg/dL (8.7-10.4)
[2024-05-30 06:32] LABS: BASOPHILS % 0.4 % (0.0-2.0); EOSINOPHILS % 1.3 % (0.0-5.0); HEMATOCRIT. 39.2 % (42.0-52.0); HEMOGLOBIN. 12.4 g/dL (14.0-18.0); LYMPHOCYTES % 7.5 % (20.0-50.0); MEAN CORPUSCULAR HEMOGLOBIN 28.9 pg (28.0-32.0); MEAN CORPUSCULAR HGB CONC 31.7 g/dL (31.0-37.0); NEUTROPHILS % 81.8 % (40.0-76.0); PLATELET 573 x1000/uL (130-400); RED BLOOD CELL COUNT 4.31 mill/uL (4.7-6.1); RED CELL DISTRIBUTION WIDTH 14.4 % (11.6-14.6); WHITE BLOOD COUNT 26.9 x1000/uL (4.5-11.0)
[2024-05-30 06:34] LABS: CREATININE 1.1 mg/dL (0.6-1.3)
[2024-05-30 06:35] LABS: GLUCOSE 177 mg/dL (70-105); UREA NITROGEN BLOOD 29 mg/dL (9-23)
[2024-05-30] MEDS ORDERED: ROCURONIUM BROMIDE 10MG/ML VIAL 5ML IV ONE (13:54)
[2024-05-30] MEDS ORDERED: CEFAZOLIN SODIUM 1000MG/VIAL ONE (14:03)
[2024-05-30 21:41] LABS: BG BASE EXCESS 0.5 mmol/L (-2.0-3.0); BG CARBOXYHEMOGLOBIN 0.6 % (0.5-1.5); BG DEOXYHEMOGLOBIN 1.9 % (0.0-5.0); BG FRACTION INSPIRED OXYGEN 30; BG HCO3 ACT 21.3 mmol/L (21.0-28.0); BG METHEMOGLOBIN 0.3 % (0.5-1.5); BG OXYGEN SATURATION 98.1 % (94.0-98.0); BG OXYHEMOGLOBIN 97.2 % (94.0-98.0); BG PCO2 23.9 mmHg (35.0-48.0); BG PH 7.567 (7.350-7.450); BG PO2 100.7 mmHg (83.0-108.0); BG SAMPLE SITE LEFT RADIAL; BG TOTAL HEMOGLOBIN 12.2 g/dL (13.5-17.5); BG VENT MODE AC/PC
[2024-05-31] VITALS (75 sets, daily range): BP systolic 100–139; BP diastolic 65–97; PULSE 105–114; RESP 0–50; TEMP 36.22512–39.55872; O2SAT 94–99
[2024-05-31 00:58] LABS: BG BASE EXCESS -0.3 mmol/L (-2.0-3.0); BG CARBOXYHEMOGLOBIN 0.3 % (0.5-1.5); BG DEOXYHEMOGLOBIN 1.8 % (0.0-5.0); BG FRACTION INSPIRED OXYGEN 30; BG HCO3 ACT 20.6 mmol/L (21.0-28.0); BG METHEMOGLOBIN 0.3 % (0.5-1.5); BG OXYGEN SATURATION 98.2 % (94.0-98.0); BG OXYHEMOGLOBIN 97.6 % (94.0-98.0); BG PH 7.552 (7.350-7.450); BG PO2 108.8 mmHg (83.0-108.0); BG SAMPLE SITE LEFT RADIAL; BG TOTAL HEMOGLOBIN 12.2 g/dL (13.5-17.5)
[2024-05-31 06:36] LABS: CHLORIDE 113 mEq/L (98-107); POTASSIUM 4.1 mEq/L (3.5-5.1); SODIUM 147 mEq/L (136-145)
[2024-05-31 06:37] LABS: CARBON DIOXIDE 21 mEq/L (21-32)
[2024-05-31 06:38] LABS: CALCIUM 9.2 mg/dL (8.7-10.4)
[2024-05-31 06:42] LABS: CREATININE 1.1 mg/dL (0.6-1.3)
[2024-05-31 06:43] LABS: GLUCOSE 200 mg/dL (70-105); UREA NITROGEN BLOOD 36 mg/dL (9-23)
[2024-05-31] MEDS ORDERED: DEXMEDETOMIDINE 400 MCG/100 ML 100 ML IV PRN (07:00)
[2024-05-31 08:47] LABS: HEMATOCRIT. 35.7 % (42.0-52.0); HEMOGLOBIN. 11.4 g/dL (14.0-18.0); MEAN CORPUSCULAR HEMOGLOBIN 28.2 pg (28.0-32.0); MEAN CORPUSCULAR HGB CONC 31.8 g/dL (31.0-37.0); MEAN CORPUSCULAR VOLUME 88.7 fL (80.0-94.0); MEAN PLATELET VOLUME 8.3 fl (7.4-10.4); PLATELET 641 x1000/uL (130-400); RED BLOOD CELL COUNT 4.03 mill/uL (4.7-6.1); RED CELL DISTRIBUTION WIDTH 14.3 % (11.6-14.6); WHITE BLOOD COUNT 22.8 x1000/uL (4.5-11.0)
[2024-05-31 08:49] LABS: DIFFERENTIAL COMMENT 1
[2024-05-31 11:15] LABS: PLATELET ESTIMATE INCREASED
[2024-05-31] MEDS: OLANZAPINE 5MG TABLET NG SCH (11:17)
[2024-05-31] MEDS: LORAZEPAM 2MG/ML INJ IV NR (11:17)
[2024-05-31] MEDS: SPIRONOLACTONE 25 MG/5 ML ORAL.SUSP NG SCH (11:19)
[2024-05-31 14:33] LABS: BG BASE EXCESS -0.3 mmol/L (-2.0-3.0); BG CARBOXYHEMOGLOBIN 0.8 % (0.5-1.5); BG DEOXYHEMOGLOBIN 8.4 % (0.0-5.0); BG FRACTION INSPIRED OXYGEN 30; BG HCO3 ACT 21.4 mmol/L (21.0-28.0); BG METHEMOGLOBIN 0.3 % (0.5-1.5); BG OXYGEN SATURATION 91.5 % (94.0-98.0); BG OXYHEMOGLOBIN 90.5 % (94.0-98.0); BG PH 7.517 (7.350-7.450); BG PO2 60.3 mmHg (83.0-108.0); BG SAMPLE SITE RIGHT RADIAL; BG TOTAL HEMOGLOBIN 12.6 g/dL (13.5-17.5); BG VENT MODE VENT - P/C
[2024-05-31] MEDS ORDERED: NALOXONE HCL 0.4MG/ML VIAL IV PRN (15:00)
[2024-05-31] MEDS: MORPHINE SULFATE 2 MG/ML INJ (NOT FOR IM USE) IV PRN (15:04)
[2024-05-31] MEDS: MORPHINE SULFATE 2 MG/ML INJ (NOT FOR IM USE) IV NR (17:47)
[2024-05-31] MEDS: BUDESONIDE 0.5MG/2ML NEB HHN SCH (20:15)
[2024-05-31] MEDS: FUROSEMIDE 40MG/4ML VIAL IVP NR (22:08)
[2024-05-31] MEDS: QUETIAPINE FUMARATE 25MG TABLET NG SCH (22:09)
[2024-05-31] MEDS: IPRATROPIUM/ALBUTEROL 0.5-3(2.5)MG/3ML NEB HHN PRN (23:57)
[2024-05-31] MEDS: ACETYLCYSTEINE 200MG/ML 20% VIAL 4ML INH SCH (23:57)
[2024-06-01] VITALS (90 sets, daily range): BP systolic 81–130; BP diastolic 56–102; PULSE 105–122; RESP 21–48; TEMP 38.44752–39.11424; O2SAT 93–99
[2024-06-01] MEDS ORDERED: SODIUM CHLORIDE 10% FOR INH 15ML NEB INH NR (01:15)
[2024-06-01] MEDS: ACETAMINOPHEN 500MG TABLET PO NR (03:35)
[2024-06-01] MEDS: MORPHINE SULFATE 2 MG/ML INJ (NOT FOR IM USE) IV PRN (08:32)
[2024-06-01] MEDS ORDERED: MEROPENEM 500MG/50ML 50 ML IV SCH (14:00)
[2024-06-01] MEDS: VANCOMYCIN 1.5GM/250ML IV NR (14:36)
[2024-06-01] MEDS: MEROPENEM 1G/100ML IV SCH (14:36)
[2024-06-01] MEDS: ALBUMIN HUMAN 12.5G/250ML (5%) IV SCH (14:45)
[2024-06-01] MEDS: LEVETIRACETAM 250MG TABLET PO SCH (20:22)
[2024-06-01] MEDS ORDERED: QUETIAPINE FUMARATE 25MG TABLET NG SCH (21:00)
[2024-06-02] VITALS (69 sets, daily range): BP systolic 90–144; BP diastolic 42–96; PULSE 96–117; RESP 19–42; TEMP 36.55848–38.22528; O2SAT 92–99
[2024-06-02 02:35] LABS: BG BASE EXCESS -3.7 mmol/L (-2.0-3.0); BG CARBOXYHEMOGLOBIN 0.3 % (0.5-1.5); BG DEOXYHEMOGLOBIN 4.7 % (0.0-5.0); BG FRACTION INSPIRED OXYGEN 30; BG METHEMOGLOBIN 0.3 % (0.5-1.5); BG OXYGEN SATURATION 95.3 % (94.0-98.0); BG OXYHEMOGLOBIN 94.7 % (94.0-98.0); BG PCO2 27.6 mmHg (35.0-48.0); BG PH 7.456 (7.350-7.450); BG PO2 80.1 mmHg (83.0-108.0); BG SAMPLE SITE RIGHT RADIAL; BG TOTAL HEMOGLOBIN 11.6 g/dL (13.5-17.5); BG TOTAL RESPIRATORY RATE 34 b/min; BG VENT MODE VENT - AC
[2024-06-02] MEDS: VANCOMYCIN 1.25GM PMX (XELLIA) 250 ML IV SCH (04:42)
[2024-06-02 08:12] LABS: HEMATOCRIT. 34.4 % (42.0-52.0); HEMOGLOBIN. 10.6 g/dL (14.0-18.0); MEAN CORPUSCULAR HEMOGLOBIN 27.8 pg (28.0-32.0); MEAN CORPUSCULAR HGB CONC 30.8 g/dL (31.0-37.0); MEAN PLATELET VOLUME 8.9 fl (7.4-10.4); PLATELET 410 x1000/uL (130-400); RED BLOOD CELL COUNT 3.82 mill/uL (4.7-6.1); RED CELL DISTRIBUTION WIDTH 14.3 % (11.6-14.6); WHITE BLOOD COUNT 32.7 x1000/uL (4.5-11.0)
[2024-06-02 08:40] LABS: CHLORIDE 112 mEq/L (98-107); POTASSIUM 4.8 mEq/L (3.5-5.1); SODIUM 146 mEq/L (136-145)
[2024-06-02 08:41] LABS: CALCIUM 8.9 mg/dL (8.7-10.4); CARBON DIOXIDE 21 mEq/L (21-32)
[2024-06-02 08:46] LABS: GLUCOSE 284 mg/dL (70-105); UREA NITROGEN BLOOD 79 mg/dL (9-23)
[2024-06-02 08:47] LABS: DIFFERENTIAL COMMENT 1
[2024-06-02 08:50] LABS: CREATININE 2.1 mg/dL (0.6-1.3)
[2024-06-02] MEDS: DEXT 5%/0.45% NACL 1000ML 1,000 ML IV SCH (10:24)
[2024-06-02] MEDS: DOPAMINE 400MG/250ML PREMIX 250 ML IV SCH (10:24)
[2024-06-02] MEDS: FUROSEMIDE 100MG/10ML VIAL IVP NR (11:35)
[2024-06-02] MEDS: CEFTRIAXONE 1GM/50ML 50 ML IV SCH (12:12)
[2024-06-02] MEDS: OLANZAPINE 2.5MG TABLET NG SCH (12:12)
[2024-06-02 15:37] LABS: HEMOGLOBIN 9.7 g/dL (14.0-18.0); MEAN CORPUSCULAR HEMOGLOBIN 28.2 pg (28.0-32.0); MEAN CORPUSCULAR HGB CONC 31.3 g/dL (31.0-37.0); MEAN CORPUSCULAR VOLUME 89.9 fL (80.0-94.0); PLATELET 341 x1000/uL (130-400); RED BLOOD CELL COUNT 3.45 mill/uL (4.7-6.1); RED CELL DISTRIBUTION WIDTH 14.6 % (11.6-14.6); WHITE BLOOD COUNT 25.4 x1000/uL (4.5-11.0)
[2024-06-02 15:59] LABS: CHLORIDE 113 mEq/L (98-107); POTASSIUM 4.3 mEq/L (3.5-5.1); SODIUM 146 mEq/L (136-145)
[2024-06-02 16:00] LABS: CALCIUM 8.7 mg/dL (8.7-10.4); CARBON DIOXIDE 19 mEq/L (21-32)
[2024-06-02 16:05] LABS: CREATININE 2.4 mg/dL (0.6-1.3); GLUCOSE 302 mg/dL (70-105); UREA NITROGEN BLOOD 86 mg/dL (9-23)
[2024-06-02 16:07] LABS: ALANINE AMINOTRANSFERASE 59 IU/L (10-49); ALBUMIN 3.7 g/dL (3.2-4.8); ASPARTATE AMINOTRANSFERASE 109 IU/L (<34); BILIRUBIN TOTAL 0.4 mg/dL (0.1-1.0)
[2024-06-02] MEDS: CEFTAZIDIME PENTAHYDRATE 1 G in DEXTROSE 5% WATER 50 ML IV SCH (20:11)
[2024-06-02] MEDS: QUETIAPINE FUMARATE 25MG TABLET NG SCH (20:37)
[2024-06-02] MEDS ORDERED: PIPERACILLIN/TAZO 3.375G/50ML 50 ML IV SCH (21:00)
[2024-06-02] MEDS ORDERED: MEROPENEM 1G/100ML IV SCH (21:00)
[2024-06-02 21:11] LABS: PLATELET ESTIMATE NORMAL; TOXIC GRANULATION 1+
[2024-06-02] MEDS: METRONIDAZOLE 500MG TABLET PO SCH (23:13)
[2024-06-03] VITALS (94 sets, daily range): BP systolic 82–155; BP diastolic 45–136; PULSE 74–100; RESP 14–39; TEMP 36.50292–37.61412; O2SAT 92–100
[2024-06-03] MEDS ORDERED: VANCOMYCIN HCL 1GM VIAL PO SCH
[2024-06-03] MEDS: VANCOMYCIN 250MG/5ML ORAL SYRINGE PO SCH (00:40)
[2024-06-03 01:09] LABS: CLARITY URINE CLOUDY (CLEAR); COLOR URINE YELLOW (YELLOW); GLUCOSE URINE NEGATIVE (NEGATIVE); KETONES URINE NEGATIVE (NEGATIVE); LEUKOCYTE ESTERASE URINE NEGATIVE (NEGATIVE); NITRITE URINE NEGATIVE (NEGATIVE); OCCULT BLOOD URINE 3+ (NEGATIVE); PROTEIN URINE 1+ (NEGATIVE)
[2024-06-03 05:23] LABS: RBC URINE 15-25 /hpf (0-2)
[2024-06-03 05:24] LABS: BACTERIA URINE NONE SEEN; SQUAMOUS EPITHELIAL CELL URINE NONE SEEN /lpf (RARE/1+)
[2024-06-03 05:25] LABS: FINE GRANULAR CASTS URINE 0-5 /lpf
[2024-06-03 06:53] LABS: HEMATOCRIT. 30.5 % (42.0-52.0); HEMOGLOBIN. 9.4 g/dL (14.0-18.0); MEAN CORPUSCULAR VOLUME 90.5 fL (80.0-94.0); MEAN PLATELET VOLUME 9.3 fl (7.4-10.4); PLATELET 305 x1000/uL (130-400); RED BLOOD CELL COUNT 3.37 mill/uL (4.7-6.1); RED CELL DISTRIBUTION WIDTH 15.1 % (11.6-14.6); WHITE BLOOD COUNT 26.6 x1000/uL (4.5-11.0)
[2024-06-03 06:58] LABS: CALCIUM 8.8 mg/dL (8.7-10.4)
[2024-06-03 07:02] LABS: CREATININE 2.1 mg/dL (0.6-1.3)
[2024-06-03 07:04] LABS: DIFFERENTIAL COMMENT 1
[2024-06-03] MEDS: PANTOPRAZOLE SODIUM 40 MG/VIAL IV SCH (09:13)
[2024-06-03] MEDS: INSULIN GLARGINE 100 UNITS/ML SUBCUT SCH (09:14)
[2024-06-03] MEDS: ENOXAPARIN 30MG/0.3ML SYR SUBCUT SCH (09:21)
[2024-06-03] MEDS: SODIUM CHLORIDE 0.45% 1,000 ML IV SCH (09:22)
[2024-06-03] MEDS: CEFTAZIDIME PENTAHYDRATE 2 G in DEXT 5% WATER 100 ML IV SCH (12:34)
[2024-06-03 14:19] LABS: NUCLEATED RED BLOOD CELLS 1 /100 WBC; PLATELET ESTIMATE NORMAL
[2024-06-03] MEDS: MIDODRINE HCL 5MG TABLET PO SCH (14:33)
[2024-06-03] MEDS: CALCIUM GLUCONATE 1GM PREMIX 50 ML IV NR (14:47)
[2024-06-03] MEDS: VANCOMYCIN 750MG PMX (XELLIA) 150 ML IV SCH (15:34)
[2024-06-03] MEDS: MEROPENEM 1G/100ML IV SCH (16:44)
[2024-06-03] MEDS: CALCIUM GLUCONATE 3,000 MG in DEXT 5% WATER 250 ML IV NR (16:44)
[2024-06-03] MEDS ORDERED: MIDODRINE HCL 5MG TABLET PO SCH (17:00)
[2024-06-04] VITALS (55 sets, daily range): BP systolic 101–137; BP diastolic 56–71; PULSE 70–97; RESP 13–33; TEMP 37.11408–37.7808; O2SAT 94–100
[2024-06-04 07:47] LABS: POTASSIUM 4.2 mEq/L (3.5-5.1)
[2024-06-04 07:48] LABS: CALCIUM 9.5 mg/dL (8.7-10.4)
[2024-06-04 07:50] LABS: HEMATOCRIT. 28.1 % (42.0-52.0); HEMOGLOBIN. 9.1 g/dL (14.0-18.0); MEAN CORPUSCULAR HEMOGLOBIN 28.5 pg (28.0-32.0); MEAN CORPUSCULAR HGB CONC 32.3 g/dL (31.0-37.0); MEAN CORPUSCULAR VOLUME 88.1 fL (80.0-94.0); MEAN PLATELET VOLUME 9.2 fl (7.4-10.4); PLATELET 290 x1000/uL (130-400); RED BLOOD CELL COUNT 3.19 mill/uL (4.7-6.1); RED CELL DISTRIBUTION WIDTH 14.4 % (11.6-14.6)
[2024-06-04 07:53] LABS: CREATININE 1.5 mg/dL (0.6-1.3)
[2024-06-04 08:03] LABS: DIFFERENTIAL COMMENT 1
[2024-06-04 10:09] LABS: BG BASE EXCESS -3.7 mmol/L (-2.0-3.0); BG CARBOXYHEMOGLOBIN 0.3 % (0.5-1.5); BG DEOXYHEMOGLOBIN 2.6 % (0.0-5.0); BG FRACTION INSPIRED OXYGEN 30; BG HCO3 ACT 17.9 mmol/L (21.0-28.0); BG METHEMOGLOBIN 0.3 % (0.5-1.5); BG OXYGEN SATURATION 97.4 % (94.0-98.0); BG OXYHEMOGLOBIN 96.8 % (94.0-98.0); BG PCO2 22.3 mmHg (35.0-48.0); BG PH 7.522 (7.350-7.450); BG PO2 92.9 mmHg (83.0-108.0); BG SAMPLE SITE LEFT RADIAL; BG TOTAL HEMOGLOBIN 9.8 g/dL (13.5-17.5); BG TOTAL RESPIRATORY RATE 23 b/min; BG VENT MODE VENT - AC
[2024-06-04] MEDS: MIDODRINE HCL 5MG TABLET PO SCH (12:33)
[2024-06-04] MEDS: VANCOMYCIN 1.5GM/250ML 250 ML IV SCH (13:29)
[2024-06-04 13:42] LABS: PLATELET ESTIMATE NORMAL
[2024-06-04] MEDS ORDERED: SODIUM CHLORIDE 0.9% 1,000 ML IV SCH (18:30)
[2024-06-04] MEDS: SODIUM CHLORIDE 0.9% 1,000 ML IV SCH (23:46)
[2024-06-05] VITALS (72 sets, daily range): BP systolic 82–146; BP diastolic 52–91; PULSE 65–88; RESP 14–29; TEMP 37.00296–37.55856; O2SAT 96–100
[2024-06-05 05:23] LABS: CALCIUM 8.8 mg/dL (8.7-10.4); CARBON DIOXIDE 22 mEq/L (21-32); CHLORIDE 116 mEq/L (98-107); POTASSIUM 3.9 mEq/L (3.5-5.1); SODIUM 148 mEq/L (136-145)
[2024-06-05 05:28] LABS: CREATININE 1.2 mg/dL (0.6-1.3); GLUCOSE 153 mg/dL (70-105)
[2024-06-05 05:30] LABS: ALANINE AMINOTRANSFERASE 99 IU/L (10-49); ALBUMIN 3.1 g/dL (3.2-4.8); ASPARTATE AMINOTRANSFERASE 137 IU/L (<34); UREA NITROGEN BLOOD 57 mg/dL (9-23)
[2024-06-05 05:31] LABS: BILIRUBIN TOTAL 0.4 mg/dL (0.1-1.0)
[2024-06-05 05:32] LABS: PROTEIN TOTAL 6.2 g/dL (6.0-8.3)
[2024-06-05 05:45] LABS: INR 1.2
[2024-06-05 07:58] LABS: HEMATOCRIT. 25.3 % (42.0-52.0); HEMOGLOBIN. 8.2 g/dL (14.0-18.0); MEAN CORPUSCULAR HEMOGLOBIN 28.4 pg (28.0-32.0); MEAN CORPUSCULAR HGB CONC 32.6 g/dL (31.0-37.0); MEAN CORPUSCULAR VOLUME 87.2 fL (80.0-94.0); RED CELL DISTRIBUTION WIDTH 14.3 % (11.6-14.6)
[2024-06-05 08:01] LABS: DIFFERENTIAL COMMENT 1
[2024-06-05 12:10] LABS: PLATELET 262 x1000/uL (130-400)
[2024-06-05 12:11] LABS: PLATELET ESTIMATE NORMAL
[2024-06-05] MEDS ORDERED: PROPOFOL 200MG/20ML VIAL IV ONE (14:42)
[2024-06-06] VITALS (36 sets, daily range): BP systolic 100–132; BP diastolic 62–79; PULSE 78–88; RESP 10–33; TEMP 36.28068–37.7808; O2SAT 96–100
[2024-06-06 06:08] LABS: BG DEOXYHEMOGLOBIN 1.3 % (0.0-5.0); BG FRACTION INSPIRED OXYGEN 100; BG HCO3 ACT 19.2 mmol/L (21.0-28.0); BG METHEMOGLOBIN 0.3 % (0.5-1.5); BG OXYGEN SATURATION 98.7 % (94.0-98.0); BG OXYHEMOGLOBIN 98.4 % (94.0-98.0); BG PCO2 24.9 mmHg (35.0-48.0); BG PH 7.504 (7.350-7.450); BG PO2 153.6 mmHg (83.0-108.0); BG SAMPLE SITE LEFT RADIAL; BG TOTAL HEMOGLOBIN 9.6 g/dL (13.5-17.5); BG TOTAL RESPIRATORY RATE 26 b/min; BG VENT MODE VENT - AC
[2024-06-06] MEDS: METOCLOPRAMIDE HCL 10MG/2ML VIAL IV SCH (06:17)
[2024-06-06 06:18] LABS: HEMATOCRIT. 25.7 % (42.0-52.0); HEMOGLOBIN. 8.2 g/dL (14.0-18.0); MEAN CORPUSCULAR VOLUME 87.5 fL (80.0-94.0); MEAN PLATELET VOLUME 8.7 fl (7.4-10.4); PLATELET 236 x1000/uL (130-400); RED BLOOD CELL COUNT 2.94 mill/uL (4.7-6.1); RED CELL DISTRIBUTION WIDTH 14.5 % (11.6-14.6); WHITE BLOOD COUNT 16.3 x1000/uL (4.5-11.0)
[2024-06-06 06:39] LABS: CREATINE KINASE 1262 IU/L (46-171)
[2024-06-06 07:10] LABS: DIFFERENTIAL COMMENT 1
[2024-06-06 09:07] LABS: CALCIUM 8.5 mg/dL (8.7-10.4); CARBON DIOXIDE 19 mEq/L (21-32)
[2024-06-06 09:12] LABS: GLUCOSE 158 mg/dL (70-105); UREA NITROGEN BLOOD 46 mg/dL (9-23)
[2024-06-06] MEDS: FUROSEMIDE 40MG/4ML VIAL IVP NR (12:35)
[2024-06-06 13:29] LABS: CHLORIDE 121 mEq/L (98-107); POTASSIUM 4.1 mEq/L (3.5-5.1); SODIUM 152 mEq/L (136-145)
[2024-06-06 15:39] LABS: BG BASE EXCESS -3.5 mmol/L (-2.0-3.0); BG CARBOXYHEMOGLOBIN 0.3 % (0.5-1.5); BG DEOXYHEMOGLOBIN 1.5 % (0.0-5.0); BG FRACTION INSPIRED OXYGEN 40; BG HCO3 ACT 18.8 mmol/L (21.0-28.0); BG METHEMOGLOBIN 0.3 % (0.5-1.5); BG OXYGEN SATURATION 98.5 % (94.0-98.0); BG OXYHEMOGLOBIN 97.9 % (94.0-98.0); BG PCO2 24.9 mmHg (35.0-48.0); BG PH 7.496 (7.350-7.450); BG PO2 115.8 mmHg (83.0-108.0); BG SAMPLE SITE RIGHT RADIAL; BG TOTAL HEMOGLOBIN 9.1 g/dL (13.5-17.5); BG VENT MODE VENT - AC
[2024-06-06] MEDS: MEROPENEM 1G/100ML IV SCH (18:12)
[2024-06-06 20:30] LABS: PLATELET ESTIMATE NORMAL
[2024-06-07] VITALS (24 sets, daily range): BP systolic 46–150; BP diastolic 62–83; PULSE 77–94; RESP 11–33; TEMP 36.61404–38.44752; O2SAT 93–100
[2024-06-07 06:14] LABS: HEMATOCRIT. 26.9 % (42.0-52.0); HEMOGLOBIN. 8.8 g/dL (14.0-18.0); MEAN CORPUSCULAR HEMOGLOBIN 28.7 pg (28.0-32.0); MEAN CORPUSCULAR HGB CONC 32.6 g/dL (31.0-37.0); MEAN CORPUSCULAR VOLUME 87.9 fL (80.0-94.0); MEAN PLATELET VOLUME 9.1 fl (7.4-10.4); PLATELET 245 x1000/uL (130-400); RED BLOOD CELL COUNT 3.06 mill/uL (4.7-6.1); RED CELL DISTRIBUTION WIDTH 14.6 % (11.6-14.6); WHITE BLOOD COUNT 14.3 x1000/uL (4.5-11.0)
[2024-06-07 06:19] LABS: CARBON DIOXIDE 22 mEq/L (21-32); CHLORIDE 123 mEq/L (98-107)
[2024-06-07 06:20] LABS: CALCIUM 8.9 mg/dL (8.7-10.4)
[2024-06-07 06:24] LABS: DIFFERENTIAL COMMENT 1; GLUCOSE 144 mg/dL (70-105)
[2024-06-07 06:25] LABS: UREA NITROGEN BLOOD 43 mg/dL (9-23)
[2024-06-07 08:17] LABS: SODIUM 156 mEq/L (136-145)
[2024-06-07] MEDS: ASPIRIN 81MG EC TABLET PO SCH (09:00)
[2024-06-07] MEDS: METHYLPHENIDATE HCL 5MG TABLET PO SCH (10:09)
[2024-06-07] MEDS: CLOPIDOGREL 75MG TABLET PO SCH (10:17)
[2024-06-07] MEDS ORDERED: DEXTROSE 5% WATER 1,000 ML IV SCH (10:30)
[2024-06-07] MEDS: DEXTROSE 5% WATER 1,000 ML IV SCH (10:50)
[2024-06-07 15:47] LABS: PLATELET ESTIMATE NORMAL
[2024-06-08] VITALS (22 sets, daily range): BP systolic 109–135; BP diastolic 60–83; PULSE 84–100; RESP 16–26; TEMP 36.28068–38.39196; O2SAT 95–99
[2024-06-08 07:38] LABS: BG BASE EXCESS -2.6 mmol/L (-2.0-3.0); BG CARBOXYHEMOGLOBIN 0.2 % (0.5-1.5); BG DEOXYHEMOGLOBIN 1.1 % (0.0-5.0); BG FRACTION INSPIRED OXYGEN 40; BG HCO3 ACT 18.8 mmol/L (21.0-28.0); BG METHEMOGLOBIN 0.3 % (0.5-1.5); BG OXYGEN SATURATION 98.9 % (94.0-98.0); BG OXYHEMOGLOBIN 98.4 % (94.0-98.0); BG PH 7.531 (7.350-7.450); BG PO2 131.7 mmHg (83.0-108.0); BG SAMPLE SITE RIGHT RADIAL; BG TOTAL HEMOGLOBIN 10.2 g/dL (13.5-17.5); BG VENT MODE VENT - AC
[2024-06-08] MEDS: ASPIRIN 81MG TABLET PEG SCH (08:20)
[2024-06-08 12:02] LABS: BASOPHILS % 0.6 % (0.0-2.0); EOSINOPHILS % 6.8 % (0.0-5.0); HEMATOCRIT. 27.2 % (42.0-52.0); HEMOGLOBIN. 8.6 g/dL (14.0-18.0); LYMPHOCYTES % 8.4 % (20.0-50.0); MEAN CORPUSCULAR HEMOGLOBIN 27.9 pg (28.0-32.0); MEAN CORPUSCULAR HGB CONC 31.8 g/dL (31.0-37.0); MEAN PLATELET VOLUME 8.8 fl (7.4-10.4); MONOCYTES % 6.1 % (2.0-8.0); NEUTROPHILS % 78.1 % (40.0-76.0); PLATELET 255 x1000/uL (130-400); RED BLOOD CELL COUNT 3.09 mill/uL (4.7-6.1); RED CELL DISTRIBUTION WIDTH 14.6 % (11.6-14.6); WHITE BLOOD COUNT 14.1 x1000/uL (4.5-11.0)
[2024-06-08 12:19] LABS: CHLORIDE 117 mEq/L (98-107); POTASSIUM 4.1 mEq/L (3.5-5.1); SODIUM 148 mEq/L (136-145)
[2024-06-08 12:20] LABS: CALCIUM 8.5 mg/dL (8.7-10.4); CARBON DIOXIDE 21 mEq/L (21-32)
[2024-06-08 12:25] LABS: CREATININE 0.9 mg/dL (0.6-1.3); GLUCOSE 163 mg/dL (70-105); UREA NITROGEN BLOOD 31 mg/dL (9-23)
[2024-06-08] MEDS: VANCOMYCIN 250MG/5ML ORAL SYRINGE PO SCH (17:54)
[2024-06-09] VITALS (23 sets, daily range): BP systolic 93–131; BP diastolic 61–72; PULSE 80–95; RESP 15–29; TEMP 36.3918–38.28084; O2SAT 94–99
[2024-06-09 07:39] LABS: CHLORIDE 116 mEq/L (98-107); POTASSIUM 3.7 mEq/L (3.5-5.1); SODIUM 146 mEq/L (136-145)
[2024-06-09 07:42] LABS: CALCIUM 8.6 mg/dL (8.7-10.4); CARBON DIOXIDE 21 mEq/L (21-32)
[2024-06-09 07:47] LABS: CREATININE 0.9 mg/dL (0.6-1.3); GLUCOSE 131 mg/dL (70-105); UREA NITROGEN BLOOD 28 mg/dL (9-23)
[2024-06-09 07:48] LABS: ALANINE AMINOTRANSFERASE 155 IU/L (10-49); ALBUMIN 2.9 g/dL (3.2-4.8); CREATINE KINASE 780 IU/L (46-171)
[2024-06-09 07:49] LABS: ASPARTATE AMINOTRANSFERASE 138 IU/L (<34); BILIRUBIN DIRECT 0.2 mg/dL (<=3.0); BILIRUBIN TOTAL 0.4 mg/dL (0.1-1.0); PROTEIN TOTAL 6.3 g/dL (6.0-8.3)
[2024-06-09 07:59] LABS: BASOPHILS % 0.2 % (0.0-2.0); EOSINOPHILS % 6.2 % (0.0-5.0); HEMATOCRIT. 28.7 % (42.0-52.0); HEMOGLOBIN. 9.1 g/dL (14.0-18.0); LYMPHOCYTES % 8.6 % (20.0-50.0); MEAN CORPUSCULAR HGB CONC 31.9 g/dL (31.0-37.0); MEAN CORPUSCULAR VOLUME 87.7 fL (80.0-94.0); MEAN PLATELET VOLUME 8.5 fl (7.4-10.4); MONOCYTES % 4.2 % (2.0-8.0); NEUTROPHILS % 80.8 % (40.0-76.0); PLATELET 284 x1000/uL (130-400); RED BLOOD CELL COUNT 3.27 mill/uL (4.7-6.1); RED CELL DISTRIBUTION WIDTH 14.6 % (11.6-14.6); WHITE BLOOD COUNT 16.4 x1000/uL (4.5-11.0)
[2024-06-09 14:38] LABS: CLARITY URINE TURBID (CLEAR); COLOR URINE YELLOW (YELLOW); GLUCOSE URINE NEGATIVE (NEGATIVE); KETONES URINE NEGATIVE (NEGATIVE); LEUKOCYTE ESTERASE URINE TRACE (NEGATIVE); NITRITE URINE NEGATIVE (NEGATIVE); OCCULT BLOOD URINE 3+ (NEGATIVE); PROTEIN URINE 2+ (NEGATIVE); UROBILINOGEN URINE 0.2 E.U./dL (0.2-1.0)
[2024-06-09 15:05] LABS: BACTERIA URINE 2+; RBC URINE 15-25 /hpf (0-2); YEAST URINE NONE SEEN
[2024-06-09 15:06] LABS: SQUAMOUS EPITHELIAL CELL URINE NONE SEEN /lpf (RARE/1+); URIC ACID CRYSTALS URINE 4+ /lpf
[2024-06-09] MEDS: CEPHALEXIN 250MG CAPSULE PO SCH (22:59)
[2024-06-10] VITALS (22 sets, daily range): BP systolic 107–132; BP diastolic 59–79; PULSE 86–101; RESP 15–30; TEMP 36.28068–38.39196; O2SAT 96–99
[2024-06-10 08:37] LABS: HEMOGLOBIN. 8.7 g/dL (14.0-18.0); MEAN CORPUSCULAR HEMOGLOBIN 27.9 pg (28.0-32.0); MEAN CORPUSCULAR HGB CONC 32.2 g/dL (31.0-37.0); MEAN CORPUSCULAR VOLUME 86.4 fL (80.0-94.0); MEAN PLATELET VOLUME 8.3 fl (7.4-10.4); PLATELET 278 x1000/uL (130-400); RED BLOOD CELL COUNT 3.13 mill/uL (4.7-6.1); RED CELL DISTRIBUTION WIDTH 14.7 % (11.6-14.6); WHITE BLOOD COUNT 14.7 x1000/uL (4.5-11.0)
[2024-06-10 08:40] LABS: DIFFERENTIAL COMMENT 1
[2024-06-10 09:32] LABS: CALCIUM 8.5 mg/dL (8.7-10.4); CARBON DIOXIDE 22 mEq/L (21-32); CHLORIDE 116 mEq/L (98-107); SODIUM 146 mEq/L (136-145)
[2024-06-10 09:38] LABS: CREATININE 0.8 mg/dL (0.6-1.3); GLUCOSE 137 mg/dL (70-105); UREA NITROGEN BLOOD 28 mg/dL (9-23)
[2024-06-10 16:42] LABS: PLATELET ESTIMATE NORMAL
[2024-06-10] MEDS ORDERED: ACETAMINOPHEN 650MG/20.3ML UDC PO NR (21:15)
[2024-06-10] MEDS: ACETAMINOPHEN 325MG TABLET PO NR (21:38)
[2024-06-11] VITALS (21 sets, daily range): BP systolic 107–142; BP diastolic 62–75; PULSE 84–99; RESP 15–24; TEMP 36.114–37.66968; O2SAT 97–100
[2024-06-11 07:14] LABS: CARBON DIOXIDE 22 mEq/L (21-32); CHLORIDE 116 mEq/L (98-107); POTASSIUM 4.2 mEq/L (3.5-5.1); SODIUM 147 mEq/L (136-145)
[2024-06-11 07:15] LABS: CALCIUM 8.5 mg/dL (8.7-10.4)
[2024-06-11 07:20] LABS: CREATININE 0.8 mg/dL (0.6-1.3); GLUCOSE 113 mg/dL (70-105); UREA NITROGEN BLOOD 29 mg/dL (9-23)
[2024-06-11 07:23] LABS: HEMATOCRIT. 27.1 % (42.0-52.0); HEMOGLOBIN. 8.8 g/dL (14.0-18.0); MEAN CORPUSCULAR HEMOGLOBIN 28.5 pg (28.0-32.0); MEAN CORPUSCULAR HGB CONC 32.7 g/dL (31.0-37.0); MEAN CORPUSCULAR VOLUME 87.3 fL (80.0-94.0); MEAN PLATELET VOLUME 8.5 fl (7.4-10.4); PLATELET 309 x1000/uL (130-400); RED CELL DISTRIBUTION WIDTH 14.8 % (11.6-14.6); WHITE BLOOD COUNT 15.1 x1000/uL (4.5-11.0)
[2024-06-11 08:56] LABS: DIFFERENTIAL COMMENT 1
[2024-06-11 15:40] LABS: PLATELET ESTIMATE NORMAL
[2024-06-12] VITALS (25 sets, daily range): BP systolic 111–138; BP diastolic 64–85; PULSE 82–100; RESP 16–23; TEMP 36.22512–37.39188; O2SAT 98–100
[2024-06-13] VITALS (25 sets, daily range): BP systolic 117–128; BP diastolic 64–73; PULSE 87–98; RESP 15–44; TEMP 36.114–36.89184; O2SAT 98–100
[2024-06-13 06:19] LABS: CARBON DIOXIDE 24 mEq/L (21-32); CHLORIDE 113 mEq/L (98-107); POTASSIUM 4.3 mEq/L (3.5-5.1); SODIUM 145 mEq/L (136-145)
[2024-06-13 06:20] LABS: CALCIUM 8.8 mg/dL (8.7-10.4)
[2024-06-13 06:25] LABS: CREATININE 0.8 mg/dL (0.6-1.3); GLUCOSE 127 mg/dL (70-105); UREA NITROGEN BLOOD 28 mg/dL (9-23)
[2024-06-13 06:32] LABS: HEMATOCRIT. 27.7 % (42.0-52.0); HEMOGLOBIN. 8.9 g/dL (14.0-18.0); MEAN CORPUSCULAR HEMOGLOBIN 27.8 pg (28.0-32.0); MEAN CORPUSCULAR HGB CONC 32.1 g/dL (31.0-37.0); MEAN CORPUSCULAR VOLUME 86.7 fL (80.0-94.0); MEAN PLATELET VOLUME 8.2 fl (7.4-10.4); PLATELET 396 x1000/uL (130-400); RED CELL DISTRIBUTION WIDTH 14.8 % (11.6-14.6); WHITE BLOOD COUNT 15.9 x1000/uL (4.5-11.0)
[2024-06-13 06:35] LABS: DIFFERENTIAL COMMENT 1
[2024-06-13] MEDS: METRONIDAZOLE 500MG TABLET PO SCH (17:17)
[2024-06-13 18:23] LABS: GIANT PLATELETS 1+; PLATELET ESTIMATE NORMAL
[2024-06-14] VITALS: BP 128/65; PULSE 92; PULSE 93; RESP 16; RESP 18; TEMP 36.33624; O2SAT 98; O2SAT 99
== END 2024-06-14 01:30 | DRG 3 ==
LOC: ER 08:27 → EDBEDREQ 09:32 → EDBEDREQTM 09:32 → MICUNO 05-14 09:30 → CVICU 05-15 10:36 → 5EST 06-06 17:00
PROVIDERS: ADMIT Internal Medicine; ATTEND Internal Medicine
PROC: 5A1955Z Respiratory Ventilation, Greater than 96 Consecutive Hours (ICD-10-PCS; 2024-05-13)
PROC: 0BH17EZ Insertion of Endotracheal Airway into Trachea, Via Natural or Artificial Opening (ICD-10-PCS; 2024-05-14)
PROC: 4A023N7 Measurement of Cardiac Sampling and Pressure, Left Heart, Percutaneous Approach (ICD-10-PCS; 2024-05-15)
PROC: 5A02110 Assistance with Cardiac Output using Balloon Pump, Intermittent (ICD-10-PCS; 2024-05-15)
PROC: 4A00X4Z Measurement of Central Nervous Electrical Activity, External Approach (ICD-10-PCS; 2024-05-15)
PROC: B211YZZ Fluoroscopy of Multiple Coronary Arteries using Other Contrast (ICD-10-PCS; 2024-05-15)
PROC: B41FYZZ Fluoroscopy of Right Lower Extremity Arteries using Other Contrast (ICD-10-PCS; 2024-05-15)
PROC: 02100Z9 Bypass Coronary Artery, One Artery from Left Internal Mammary, Open Approach (ICD-10-PCS; principal; 2024-05-16)
PROC: 021109W Bypass Coronary Artery, Two Arteries from Aorta with Autologous Venous Tissue, Open Approach (ICD-10-PCS; 2024-05-16)
PROC: 06BQ4ZZ Excision of Left Saphenous Vein, Percutaneous Endoscopic Approach (ICD-10-PCS; 2024-05-16)
PROC: 02HV33Z Insertion of Infusion Device into Superior Vena Cava, Percutaneous Approach (ICD-10-PCS; 2024-05-21)
PROC: B548ZZA Ultrasonography of Superior Vena Cava, Guidance (ICD-10-PCS; 2024-05-21)
PROC: 4A00X4Z Measurement of Central Nervous Electrical Activity, External Approach (ICD-10-PCS; 2024-05-22)
PROC: 4A00X4Z Measurement of Central Nervous Electrical Activity, External Approach (ICD-10-PCS; 2024-05-26)
PROC: 0GBJ0ZZ Excision of Thyroid Gland Isthmus, Open Approach (ICD-10-PCS; 2024-05-30)
PROC: 0B110F4 Bypass Trachea to Cutaneous with Tracheostomy Device, Open Approach (ICD-10-PCS; 2024-05-30)
PROC: 0DB78ZX Excision of Stomach, Pylorus, Via Natural or Artificial Opening Endoscopic, Diagnostic (ICD-10-PCS; 2024-06-05)
PROC: 0DH63UZ Insertion of Feeding Device into Stomach, Percutaneous Approach (ICD-10-PCS; 2024-06-05)
DX: A41.59 Other Gram-negative sepsis (principal); I21.3 ST elevation (STEMI) myocardial infarction of unspecified site; I46.9 Cardiac arrest, cause unspecified; J96.01 Acute respiratory failure with hypoxia; I50.21 Acute systolic (congestive) heart failure; J69.0 Pneumonitis due to inhalation of food and vomit; N17.0 Acute kidney failure with tubular necrosis; I63.9 Cerebral infarction, unspecified; G93.41 Metabolic encephalopathy; E87.20 Acidosis, unspecified; G93.1 Anoxic brain damage, not elsewhere classified; I44.2 Atrioventricular block, complete; E87.4 Mixed disorder of acid-base balance; I13.0 Hypertensive heart and chronic kidney disease with heart failure and stage 1 through stage 4 chronic kidney disease, or unspecified chronic kidney disease; K56.7 Ileus, unspecified; E87.1 Hypo-osmolality and hyponatremia; N39.0 Urinary tract infection, site not specified; E87.3 Alkalosis; Z99.11 Dependence on respirator [ventilator] status; R65.20 Severe sepsis without septic shock; Z20.822 Contact with and (suspected) exposure to COVID-19; Z68.33 Body mass index [BMI] 33.0-33.9, adult; E11.65 Type 2 diabetes mellitus with hyperglycemia; E66.9 Obesity, unspecified; E83.39 Other disorders of phosphorus metabolism; I25.10 Atherosclerotic heart disease of native coronary artery without angina pectoris; Z96.651 Presence of right artificial knee joint; E11.22 Type 2 diabetes mellitus with diabetic chronic kidney disease; E87.6 Hypokalemia; N18.9 Chronic kidney disease, unspecified; K29.70 Gastritis, unspecified, without bleeding; D64.9 Anemia, unspecified; N40.0 Benign prostatic hyperplasia without lower urinary tract symptoms; K52.9 Noninfective gastroenteritis and colitis, unspecified; M10.9 Gout, unspecified; D50.9 Iron deficiency anemia, unspecified; S09.8XXA Other specified injuries of head, initial encounter; W18.39XA Other fall on same level, initial encounter; K76.0 Fatty (change of) liver, not elsewhere classified; J32.9 Chronic sinusitis, unspecified; S00.432A Contusion of left ear, initial encounter; B96.1 Klebsiella pneumoniae [K. pneumoniae] as the cause of diseases classified elsewhere; J98.4 Other disorders of lung; Z66 Do not resuscitate; E78.5 Hyperlipidemia, unspecified; K43.9 Ventral hernia without obstruction or gangrene; S90.32XA Contusion of left foot, initial encounter; G25.3 Myoclonus; Z79.02 Long term (current) use of antithrombotics/antiplatelets; Z79.4 Long term (current) use of insulin; Z79.899 Other long term (current) drug therapy; Z79.82 Long term (current) use of aspirin; I25.2 Old myocardial infarction; Y93.89 Activity, other specified; Y92.89 Other specified places as the place of occurrence of the external cause; Z86.73 Personal history of transient ischemic attack (TIA), and cerebral infarction without residual deficits; Z51.5 Encounter for palliative care; Z74.01 Bed confinement status; Z90.49 Acquired absence of other specified parts of digestive tract
CPT/HCPCS: 31500; 33967; 36415; 36573; 36600; 70551; 71045; 71275; 74018; 74176; 76700; 80048; 80053; 80061; 80076; 80202; 80305; 81003; 82010; 82140; 82248; 82375; 82550; 82570; 82607; 82728; 82746; 82805; 82962; 83036; 83540; 83550; 83605; 83735; 83880; 83930; 83935; 84100; 84132; 84145; 84156; 84439; 84443; 84478; 84481; 84484; 85025; 85027; 85044; 85347; 85651; 86038; 86705; 86709; 86850; 86900; 86920; 87070; 87077; 87102; 87186; 87340; 87426; 87804; 88305; 88312; 88313; 93005; 93306; 93458; 93880; 93970; 94002; 94003; 94640; 95816; 99291; A6261; C1725; C1729; C1751; C1758; C1769; C1887; C1893; J0282; J0610; J0690; J0696; J0713; J1120; J1265; J1644; J1650; J1720; J1815; J1940; J2060; J2185; J2250; J2270; J2405; J2440; J2470; J2543; J2704; J2710; J2720; J2765; J3010; J3370; J3475; J3480; J3490; J7030; J7050; J7060; J7070; J7131; J7608; J7626; L3908; P9041; P9047; Q9957; Q9967; C1713; J0131